=== PATIENT | female | born 1945 | race Hispanic/Latino ===

== ENCOUNTER 2020-07-07 03:40 | Emergency (ER) | payer OTHER ==
--- OUTSIDE RECORDS SUMMARY | 2020-07-07 03:42 | XMS REPORT | Continuity of Care Document ---
:1945 Author Organization [employer] Care Team Providers Name Role Phone [employer] Unavailable Un available Problems Problem Status Onset Classification Date Comments Sourc e Date Reported Localized edema Active Problem 03/31/2018 [facility] Onychomycosis Active Problem 03/31/2018 [facility] Type 2 diabetes Active Problem 03/31/2018 [facility] mellitus without [facility]at[facility] complications Ass[facility] snf current Active Problem 03/31/2018 [facility] Acute gout of Active Problem 03/31/2018 [facility] left foot, Podiatry unspecified cause As soc Medications No Data Provided for This Section Allergies, Adverse Reactions, Alerts No Known Medication Allergies Immunizations No Data Provided for This Section Results No Data Provided for This Section Pathology Reports No Data Provided for This Section Diagnostic Reports No Data Provided for This Section Consultation Notes No Data Provided for This Section Discharge Summaries No Data Provided for This Section History and Physicals No Data Provided for This Section Vital Signs No Data Provided for This Section Encounters No Data Provided for This Section Procedures No Data Provided for This Section Assessment and Plan No Data Provided for This Section Plan of Care No Data Provided for This Section Social History No Data Provided for This Section Family History No Data Provided for This Section Advance Directives No Data Provided for This Section Functional Status No Data Provided for This Section
[2020-07-07 04:47] LABS: Absolute Lymphocytes (CBC) 0.7 K/uL (0.7-4.9); Basophils % 0.5 % (0-1.3); Hematocrit 44.2 % (36.0-45.0); MPV 7.5 fL (7.6-11.3); RBC Red Blood Cell Count 4.96 M/uL (3.86-4.86)
[2020-07-07 04:50] LABS: Protime INR 0.9
[2020-07-07] MEDS ORDERED: ONDANSETRON 4 MG/2 ML VIAL ONE (04:50)
[2020-07-07] MEDS ORDERED: MORPHINE 2 MG/ML SYR ONE ×2 (04:50→05:31)
[2020-07-07 05:09] LABS: ALT/SGPT 26 U/L (12-78); AST/SGOT 20 U/L (15-37); Albumin 3.5 g/dL (3.4-5.0); Alkaline Phosphatase 62 U/L (45-117); BUN Blood Urea Nitrogen 16 mg/dL (7-18); Bicarbonate 24 mmol/L (21-32); Bilirubin Direct 0.1 mg/dL (0-0.2); Bilirubin Total 0.4 mg/dL (0.2-1.0); Creatine Phosphokinase 142 U/L (26-192); Glucose Level 185 mg/dL (74-106); Magnesium 2.1 mg/dL (1.8-2.4); NT PRO-BNP 45 pg/mL (<450); Potassium 3.7 mmol/L (3.5-5.1); Protein, Total 7.1 g/dL (6.4-8.2); Sodium Level 141 mmol/L (136-145); Troponin (Emerg Dept Use Only) < 0.02 ng/mL (0.0-0.045)
[2020-07-07] MEDS ORDERED: METHYLPREDNISOLONE 125 MG INJ ONE (08:40)
[2020-07-07] MEDS ORDERED: MEPERIDINE HCL 25 MG/ML SYR ONE (08:41)
--- NOTE | 2020-07-07 08:52 | EDPHYS ---
Physician Documentation [facility] Name: Rosario Busch Age: 75 yrs Sex: Female : 1945 Arrival Date: 07/07/2020 Time: 03:42 Bed 3 Private MD: ED Physician Jayce Fong HPI: 07/07 05:21 This 75 yrs old Female presents to ER via Ambulatory with complaints of Arm mh7 Pain, Nausea. 05:21 The patient or guardian complains of pain, that is acute. The complaints affect the mh7 Right forearm, wrist and hand. Context: The problem was sustained at home, resulted from unknown cause. Onset: The symptoms/episode began/occurred today. Treatment prior to arrival includes: no previous treatment. Modifying factors: The symptoms are alleviated by nothing. the symptoms are aggravated by movement, touching. Associated signs and symptoms: Pertinent positives: decreased range of motion, nausea, pain, Pertinent negatives: deformity, erythema, fever, numbness, swelling, tingling, vomiting, warmth, weakness. Severity of symptoms: At their worst the symptoms were moderate, earlier today, in the emergency department the symptoms are unchanged. Historical: - Allergies: 03:56 Codeine; ea 03:56 Naproxen; ea 03:56 PENICILLINS; ea 03:56 Vicodin; ea - PMHx: 03:56 Diabetes - IDDM; ea - PSHx: 03:56 ulcer surgery; Cholecystectomy; Hysterectomy; back surgery; ea - Immunization history:: Adult Immunizations up to date. - Social history:: Smoking status: Patient denies any tobacco usage or history of. ROS: 05:21 Constitutional: Negative for fever, chills, and weight loss, Eyes: Negative for injury, mh7 pain, redness, and discharge, ENT: Negative for injury, pain, and discharge, Neck: Negative for injury, pain, and swelling, Cardiovascular: Negative for chest pain, palpitations, and edema, Respiratory: Negative for shortness of breath, cough, wheezing, and pleuritic chest pain, Abdomen/GI: Negative for abdominal pain, nausea, vomiting, diarrhea, and constipation, Back: Negative for injury and pain, : Negative for injury, bleeding, discharge, and swelling, Skin: Negative for injury, rash, and discoloration, Neuro: Negative for headache, weakness, numbness, tingling, and seizure, Psych: Negative for depression, anxiety, suicide ideation, homicidal ideation, and hallucinations, Allergy/Immunology: Negative for hives, rash, and allergies, Endocrine: Negative for neck swelling, polydipsia, polyuria, polyphagia, and marked weight changes, Hematologic/Lymphatic: Negative for swollen nodes, abnormal bleeding, and unusual bruising. Exam: 05:21 Head/Face: Normocephalic, atraumatic. Eyes: Pupils equal round and reactive to light, mh7 extra-ocular motions intact. Lids and lashes normal. Conjunctiva and sclera are non-icteric and not injected. Cornea within normal limits. Periorbital areas with no swelling, redness, or edema. Neck: Trachea midline, no thyromegaly or masses palpated, and no cervical lymphadenopathy. Supple, full range of motion without nuchal rigidity, or vertebral point tenderness. No Meningismus. Chest/axilla: Normal chest wall appearance and motion. Nontender with no deformity. No lesions are appreciated. Cardiovascular: Regular rate and rhythm with a normal S1 and S2. No gallops, murmurs, or rubs. Normal PMI, no JVD. No pulse deficits. Respiratory: Lungs have equal breath sounds bilaterally, clear to auscultation and percussion. No rales, rhonchi or wheezes noted. No increased work of breathing, no retractions or nasal flaring. Abdomen/GI: Soft, non-tender, with normal bowel sounds. No distension or tympany. No guarding or rebound. No evidence of tenderness throughout. Back: No spinal tenderness. No costovertebral tenderness. Full range of motion. Skin: Warm, dry with normal turgor. Normal color with no rashes, no lesions, and no evidence of cellulitis. 05:21 Neuro: Awake and alert, GCS 15, oriented to person, place, time, and situation. Cranial nerves II-XII grossly intact. Motor strength 5/5 in all extremities. Sensory grossly intact. Cerebellar exam normal. Normal gait. Psych: Awake, alert, with orientation to person, place and time. Behavior, mood, and affect are within normal limits. 05:21 Constitutional: The patient appears in no acute distress, alert, awake, uncomfortable. 05:21 Musculoskeletal/extremity: Extremities: noted in the right forearm, wrist, and hand: pain, tenderness, ROM: limited active range of motion due to pain, in the right forearm, wrist, and hand, limited passive range of motion due to pain, in the right forearm, wrist, and hand, Circulation is intact in all extremities. Pulses: are normal with no appreciated deficits, Perfusion: the patient is normally perfused throughout, Perfusion: the extremity is normally perfused throughout, Sensation intact. Compartment Syndrome exam of affected extremity: is normal. no numbness, no tingling, no sensation deficit, no palor, no weak pulses, Joints: the right wrist displays pain at rest, painful range of motion, tenderness, Weight bearing: able to fully bear weight, without difficulty, Tendon exam: specific tendon testing normal through active and passive range of motion Vital Signs: 03:48 BP 161 / 69; Pulse 70; Resp 18; Pulse Ox 96% on R/A; ll2 03:53 BP 161 / 69; Pulse 79; Resp 18; Temp 97.6; Pulse Ox 98% ; Weight 56.7 kg; Height 4 ft. ea 11 in. (149.86 cm); Pain 9/10; 05:00 BP 130 / 65; Pulse 72; Resp 16; Pulse Ox 95% on R/A; ll2 06:05 BP 127 / 62; Pulse 74; Resp 17; Pulse Ox 94% on R/A; ll2 08:19 BP 127 / 72; Pulse 69; Resp 17; Pulse Ox 98% ; Pain 10/10; jl7 09:11 BP 126 / 60; Pulse 74; Resp 16; Pulse Ox 96% on R/A; tw2 03:53 Body Mass Index 25.25 (56.70 kg, 149.86 cm) ea MDM: 07:23 Transition of care: After a detail discussion of the patient's case, care is mh7 transferred to Jayce Fong MD. 07:43 ED course: Signed out to me by Dr. Floyd, pending u/s of arm, plan per Dr. Floyd is rn to dc home if u/s neg for dvt. . 07:43 Patient medically screened. rn 08:47 Differential diagnosis: tendonitis, pseudogout, gout, arthritis. Data reviewed: vital rn signs, nurses notes, lab test result(s), radiologic studies, doppler, plain films, and as a result, I will discharge patient. Counseling: I had a detailed discussion with the patient and/or guardian regarding: the historical points, exam findings, and any diagnostic results supporting the discharge/admit diagnosis, lab results, radiology results, the need for outpatient follow up, to return to the emergency department if symptoms worsen or persist or if there are any questions or concerns that arise at home. Response to treatment: the patient's symptoms have mildly improved after treatment. ED course: Ultrasound for dvt negative, WBC normal, afebrile, exam does not reveal signs of cellulitis or deep space infection, has pain primarily in joints of elbow and wrist without streaking. Just admitted in [place] this past week for right knee pain and swelling with right leg pain similar to pain that she is having now in arm, after workup and MRI/bloodwork, told has "a type of GOUT but not GOUT", which I am assuming is pseudogout. This would be consistent with pain from pseudogout, has hydrocodone at home, told her to add other OTC anti-inflammatory and I would prescribe steroids. Return precautions given and understood. . 07/07 04:07 Order name: Basic Metabolic Panel [facility] 07/07 04:07 Order name: CBC with Diff [facility] 07/07 04:07 Order name: LFT's; Complete Time: 05:49 [facility] 07/07 04:07 Order name: Magnesium; Complete Time: 05:49 [facility] 07/07 04:07 Order name: NT PRO-BNP; Complete Time: 05:49 [facility] 07/07 04:07 Order name: PT-INR; Complete Time: 05:49 [facility] 07/07 04:07 Order name: Troponin (emerg Dept Use Only); Complete Time: 05:49 [facility] 07/07 04:07 Order name: CPK; Complete Time: 05:49 [facility] 07/07 04:07 Order name: Forearm Right XRAY [facility] 07/07 04:07 Order name: Wrist Right 3 View XRAY [facility] 07/07 04:07 Order name: Hand Right 3 View XRAY [facility] 07/07 04:07 Order name: Basic Metabolic Panel; Complete Time: 05:49 [facility] 07/07 04:07 Order name: CBC with Automated Diff; Complete Time: 05:49 [facility] 07/07 05:49 Order name: D-Dimer; Complete Time: 06:13 [facility] 07/07 04:07 Order name: IV Saline Lock; Complete Time: 04:55 [facility] 07/07 06:14 Order name: US Extremity Venous Unilateral Ltd [facility] Administered Medications: 04:40 Drug: Zofran (Ondansetron) 4 mg Route: IVP; Site: left forearm; ll2 05:32 Follow up: Response: No adverse reaction; Nausea is decreased ll2 04:41 Drug: morphine 2 mg Route: IVP; Site: left forearm; ll2 05:31 Drug: morphine 2 mg Route: IVP; Site: left antecubital; ll2 07:00 Follow up: Response: No adverse reaction [facility] 08:33 Drug: SOLU-Medrol 125 mg Route: IVP; Site: left forearm; 7 08:35 Drug: Demerol 25 mg Route: IVP; Site: left forearm; 7 Disposition: 07/07/20 08:51 Discharged to Home. Impression: Pain in right wrist, Pseudogout. - Condition is Stable. - Discharge Instructions: Gout, Musculoskeletal Pain, Wrist Pain. - Prescriptions for Medrol (Josh) 4 mg Oral Tablets, Dose Pack - take 1 tablet by ORAL route as directed - follow package instructions; 1 packet. - Medication Reconciliation Form, Thank You Letter, Antibiotic Education, Prescription Opioid Use form. - Follow up: Private Physician; When: As needed; Reason: Recheck today's complaints, Re-evaluation by your physician. - Problem is new. - Symptoms have improved. Signatures: Dispatcher [employer] EDMS Jayce Fong MD MD rn Wise, Tara, RN RN tw2 Lili Welsh RN RN jl7 Jacki Fritz RN RN ea Linscombe, Lacie RN RN ll2 Og Floyd MD MD 7 Corrections: (The following items were deleted from the chart) 09:28 08:51 07/07/2020 08:51 Discharged to Home. Impression: Pain in right wrist; Pseudogout. tw2 Condition is Stable. Forms are Medication Reconciliation Form, Thank You Letter, Antibiotic Education, Prescription Opioid Use. Follow up: Private Physician; When: As needed; Reason: Recheck today's complaints, Re-evaluation by your physician. Problem is new. Symptoms have improved. rn
--- NOTE | 2020-07-07 08:52 | ER ---
Nurse's Notes [facility] Name: Rosario Busch Age: 75 yrs Sex: Female : 1945 Arrival Date: 07/07/2020 Time: 03:42 Bed 3 Private MD: Diagnosis: Pain in right wrist;Pseudogout Presentation: 07/07 03:53 Chief complaint: Patient states: Reports she woke up about thirty minutes ago with ea severe right arm pain. Coronavirus screen: At this time, the client does not indicate any symptoms associated with coronavirus-19. Ebola Screen: No symptoms or risks identified at this time. Initial Sepsis Screen: Does the patient meet any 2 criteria? No. Patient's initial sepsis screen is negative. Does the patient have a suspected source of infection? No. Patient's initial sepsis screen is negative. Risk Assessment: Do you want to hurt yourself or someone else? Patient reports no desire to harm self or others. Onset of symptoms was July 07, 2020. 03:53 Method Of Arrival: Ambulatory ea 03:53 Acuity: VIVIANE 3 ea Triage Assessment: 03:57 General: Appears uncomfortable, Behavior is appropriate for age. Pain: Complains of ea pain in right arm. GI: Reports nausea. Historical: - Allergies: 03:56 Codeine; ea 03:56 Naproxen; ea 03:56 PENICILLINS; ea 03:56 Vicodin; ea - PMHx: 03:56 Diabetes - IDDM; ea - PSHx: 03:56 ulcer surgery; Cholecystectomy; Hysterectomy; back surgery; ea - Immunization history:: Adult Immunizations up to date. - Social history:: Smoking status: Patient denies any tobacco usage or history of. Screenin:55 Abuse screen: Denies threats or abuse. Nutritional screening: No deficits noted. ea Tuberculosis screening: No symptoms or risk factors identified. Fall Risk None identified. Assessment: 03:55 General: Appears in no apparent distress. uncomfortable, Behavior is calm, cooperative, ll2 appropriate for age. Pain: Complains of pain in right arm. Neuro: Level of Consciousness is awake, alert, obeys commands, Oriented to person, place, time, situation. Cardiovascular: Patient's skin is warm and dry. Respiratory: Airway is patent Respiratory effort is even, unlabored, Respiratory pattern is regular, symmetrical. GI: :. EENT: No signs and/or symptoms were reported regarding the EENT system. Derm: Skin is intact, is healthy with good turgor, Skin is dry, Skin is pink, warm \T\ dry. Musculoskeletal: Circulation, motion, and sensation intact. Range of motion: limited in right arm. 04:55 Reassessment: Patient and/or family updated on plan of care and expected duration. Pain ll2 level reassessed. Patient is alert, oriented x 3, equal unlabored respirations, skin warm/dry/pink. 05:31 Reassessment: ERD NOTIFIED OF INCREASING PAIN. ll2 06:37 Reassessment: Patient and/or family updated on plan of care and expected duration. Pain ll2 level reassessed. Patient is alert, oriented x 3, equal unlabored respirations, skin warm/dry/pink. 08:10 Reassessment: Assisted pt to bathroom via wheelchair, pt reports severe right arm and jl7 wrist pain, requesting pain medication, ERD notified and to pt bedside at this time. Vital Signs: 03:48 BP 161 / 69; Pulse 70; Resp 18; Pulse Ox 96% on R/A; ll2 03:53 BP 161 / 69; Pulse 79; Resp 18; Temp 97.6; Pulse Ox 98% ; Weight 56.7 kg; Height 4 ft. ea 11 in. (149.86 cm); Pain 9/10; 05:00 BP 130 / 65; Pulse 72; Resp 16; Pulse Ox 95% on R/A; ll2 06:05 BP 127 / 62; Pulse 74; Resp 17; Pulse Ox 94% on R/A; ll2 08:19 BP 127 / 72; Pulse 69; Resp 17; Pulse Ox 98% ; Pain 10/10; jl7 09:11 BP 126 / 60; Pulse 74; Resp 16; Pulse Ox 96% on R/A; tw2 03:53 Body Mass Index 25.25 (56.70 kg, 149.86 cm) ea ED Course: 03:42 Patient arrived in ED. am2 03:43 Og Floyd MD is Attending Physician. [facility] 03:55 Triage completed. ea 03:56 Arm band placed on right wrist. Patient placed in an exam room, on a stretcher, on ea pulse oximetry. 03:56 Patient has correct armband on for positive identification. Bed in low position. Call ea light in reach. Side rails up X 1. 04:15 Inserted saline lock: 20 gauge in left forearm, using aseptic technique. Blood ea collected. 04:28 Leny Taveras RN is Primary Nurse. ll2 05:10 X-ray completed. Portable x-ray completed in exam room. Patient tolerated procedure mh1 well. 05:11 Forearm Right XRAY In Process Unspecified. EDMS 05:11 Wrist Right 3 View XRAY In Process Unspecified. EDMS 05:11 Hand Right 3 View XRAY In Process Unspecified. EDMS 06:37 No provider procedures requiring assistance completed. ll2 07:09 Report given to ANDREW Pearson. ll2 07:18 Primary Nurse role handed off by Leny Taveras RN tw2 07:18 Angela Eli RN is Primary Nurse. tw2 07:43 Attending Physician role handed off by Og Floyd MD rn 07:43 Jayce Fong MD is Attending Physician. rn 08:07 US Extremity Venous Unilateral Ltd In Process Unspecified. EDMS Administered Medications: 04:40 Drug: Zofran (Ondansetron) 4 mg Route: IVP; Site: left forearm; ll2 05:32 Follow up: Response: No adverse reaction; Nausea is decreased ll2 04:41 Drug: morphine 2 mg Route: IVP; Site: left forearm; ll2 05:31 Drug: morphine 2 mg Route: IVP; Site: left antecubital; ll2 07:00 Follow up: Response: No adverse reaction jl7 08:33 Drug: SOLU-Medrol 125 mg Route: IVP; Site: left forearm; jl7 08:35 Drug: Demerol 25 mg Route: IVP; Site: left forearm; jl7 Outcome: 08:51 Discharge ordered by . rn 09:28 Patient left the ED. tw2 Signatures: Dispatcher [employer] EDMS Brittny Grace 1 Jayce Fong MD MD rn Wise, Tara, RN RN tw2 Lili Welsh RN RN jl7 Doreen Andrews 2 Jacki Fritz RN RN ea Linscombe, Lacie, RN RN 2 Floyd, Og, MD MD mh7
--- NOTE | 2020-07-07 09:17 | RAD REPORT ---
EXAM DESCRIPTION: US - Extremity Venous Uni Ltd - 07/07/2020 8:10 am CLINICAL HISTORY: Right arm pain and swelling COMPARISON: None. TECHNIQUE: Real-time sonographic evaluation of the right upper extremity deep venous systems was per formed. FINDINGS: Normal compressibility, flow augmentation, phasic flow and spontaneous flow are identified in the right upper extremity deep venous system. No intraluminal filling defects seen. Internal jugu lar and subclavian veins are normal as well. IMPRESSION: No DVT in the right upper extremity.
--- NOTE | 2020-07-07 09:21 | RAD REPORT ---
EXAM DESCRIPTION: RAD - Forearm Right - 07/07/2020 5:10 am CLINICAL HISTORY: PAIN, nontraumatic arm pain COMPARISON: No comparisonsNone. FINDINGS: No fracture is identified. There is no dislocation or periosteal reaction noted. Bones are osteopenic. Degenerative changes are present seen as calcifications in the triangular fibro cartilage at the wrist. There degenerative calcifications along the lateral margin of the elbow joint . IMPRESSION: Osteopenic right forearm bony changes along with elbow and wrist degenerative change as detailed. No acute findings seen.
--- NOTE | 2020-07-07 09:29 | RAD REPORT ---
EXAM DESCRIPTION: RAD - Wrist Right 3 View - 07/07/2020 5:10 am CLINICAL HISTORY: PAINcommon nontraumatic COMPARISON: No comparisons FINDINGS: No fracture is identified. There is no dislocation or periosteal reaction noted. Degenerat juan pablo calcifications are present at the triangular fibrocartilage of the wrist. Radiocarpal joint space is narrowed slightly. Periarticular calcifications are present at the second and fifth MCP joints. T here does appear to be some erosive component along the medial margin of the fifth metacarpal head. T he IP joints are narrowed. No periarticular calcifications confirmed at the IP joints and no erosive changes seen. No foreign body seen. Bones are osteopenic. IMPRESSION: Osteopenic and degenerative bony changes are present with no fracture or acute finding s een. Periarticular calcifications at the second and fifth MCP joints are suspicious for gout. Calcium pyro phosphate deposition disease is possible. An acute calcific area arthritis is possible but usually in younger patients.
--- NOTE | 2020-07-07 09:37 | RAD REPORT ---
EXAM DESCRIPTION: RAD - Hand Right 3 View - 07/07/2020 5:10 am CLINICAL HISTORY: PAIN, nontraumatic COMPARISON: Hand Right 3 View dated 02/01/2010 FINDINGS: No acute fracture identified. There is no dislocation or periosteal reaction noted. Peria rticular calcifications are present at the second and fifth MCP joints. There are lucent changes in t he fifth metacarpal head most notable along the medial margin of the head. Calcifications are progres sive from 2009. IP joint space narrowing seen without spurring or erosive change. No IP joint periarticular calcifica tions confirmed. Patient has calcifications at the triangular fibrocartilage at the wrist along with additional calcifications along the margins of the radiocarpal joint space. These calcifications and degenerative changes are progressive from 2009. IMPRESSION: No acute fracture seen. No pathologic or destructive bone change. Osteopenic and degenerative changes are present along with periarticular calcifications as detailed. Gout is the favored diagnosis and can be correlated with any history. Calcium pyrophosphate depositio n disease would be possible as well. Acute calcific periarthritis also possible.
[2020-07-07 11:32] VITALS: TEMP 97.6
[2020-07-07 11:46] VITALS: BP 126/60; O2SAT 96
== END 2020-07-07 09:28 | disposition home or self-care (01) ==
LOC: ER 03:40
DX: M11.231 Other chondrocalcinosis, right wrist (principal); E11.9 Type 2 diabetes mellitus without complications; Z79.4 Long term (current) use of insulin
CPT/HCPCS: 85025; 80048; 36415; 83735; 82550; 85610; 85379; 80076; 84484; 83880; 73130; 73090; 73110; 93971; 99284; J2270 ×2; J2175; J2930; J2405

== ENCOUNTER 2021-06-11 15:32 | Emergency (ER) | payer OTHER ==
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
--- NOTE | 2021-06-11 16:26 | RAD REPORT ---
EXAM DESCRIPTION: RAD - Femur Right - 06/11/2021 4:16 pm CLINICAL HISTORY: PAIN COMPARISON: No comparisons FINDINGS: No acute fracture. No malalignment. Mild right acetabular degenerative changes. IMPRESSION: No acute osseous abnormality involving the right knee.
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
[2021-06-11 18:24] VITALS: BP 125/55; TEMP 98; O2SAT 97
== END 2021-06-11 16:50 | disposition home or self-care (01) ==
LOC: ER 15:32
DX: M54.50 Low back pain, unspecified (principal); V49.50XA Passenger injured in collision with unspecified motor vehicles in traffic accident, initial encounter; E11.9 Type 2 diabetes mellitus without complications; Z88.0 Allergy status to penicillin; Z88.5 Allergy status to narcotic agent; Z88.6 Allergy status to analgesic agent
CPT/HCPCS: 70450; 71250; 72125; 99284

== ENCOUNTER 2021-08-22 04:27 | Emergency (ER) | payer OTHER ==
--- OUTSIDE RECORDS SUMMARY | 2021-08-22 04:30 | XMS REPORT | Continuity of Care Document ---
:1945 Author Organization [facility] t Address [address] [place] [address] Care Team Providers Name Role Phone Unavailable Unavailable Unavailable Problems Condition Condition Condition Status Onset Resolution Last Treating Co mments Source Name Details Category Date Date Treatment Clinician Date Localized Problem Active 2018-03-31 Me moria edema 02:45:[address] [place] Localized edema Active Problem 03/31/2018 [facility] Onychomyco Problem Active 2018-03-31 M emoria sis 02:45:[address] [place] Onychomyco sis Active Problem 03/31/2018 [facility] Type 2 Problem Active 2018-03-31 Memor ia diabetes 02:45:13 l mellitus Type 2 Cj n without diabetes complicati mellitus ons without complicati ons Active Problem 03/31/2018 [facility] 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 Medications This patient has no known medications. Procedures This patient has no known procedures. Encounters Start End Encounter Admission Attending Care Care Encounter Source Date/Time Date/Time Type Type Clinicians Facility Department ID 2021-05-01 Outpatient [id number] Memoria 09:22:26 [id number] [place] [id number] 2021-04-11 [facility] [id number] Memoria 15:20:22 [id number] [place] [id number] Results This patient has no known results.
[2021-08-22] MEDS ORDERED: FENTANYL CITR 100 MCG/2 ML ONE ×2 (05:51→06:38)
[2021-08-22] MEDS ORDERED: ONDANSETRON 4 MG/2 ML VIAL ONE (05:53)
[2021-08-22] MEDS ORDERED: COLCHICINE 0.6 MG TAB ONE ×4 (05:53→07:15)
[2021-08-22] MEDS ORDERED: dexAMETHasone 10 MG/ML VIAL ONE (05:53)
[2021-08-22] MEDS ORDERED: NA CHLORIDE 0.9% 500 ML ONE (05:53)
[2021-08-22 05:56] LABS: Absolute Lymphocytes (CBC) 0.4 K/uL (0.7-4.9); Hematocrit 37.9 % (36.0-45.0); Lymphocytes % 6.3 % (15.3-44.8); MPV 6.5 fL (7.6-11.3); RBC Red Blood Cell Count 4.31 M/uL (3.86-4.86)
--- NOTE | 2021-08-22 06:15 | EDPHYS ---
Physician Documentation [facility] Name: Rosario Busch Age: 76 yrs Sex: Female : 1945 Arrival Date: 08/22/2021 Time: 04:30 Bed 11 Private MD: ED Physician Addison Gamboa HPI: 08/22 05:17 This 76 yrs old Female presents to ER via Wheelchair with complaints of PAIN carrillo DOWN THE RIGHT SIDE, Decreased Appetite, Chest Pain. 05:17 This 76 yrs old Female presents to ER via Wheelchair with complaints of PAIN carrillo DOWN THE RIGHT SIDE, Decreased Appetite, Chest Pain. Historical: - Allergies: 04:40 Codeine; sf1 04:40 Naproxen; sf1 04:40 PENICILLINS; sf1 04:40 Vicodin; sf1 - Home Meds: 04:40 Align 4 mg Oral cap [Active]; cyanocobalamin (vitamin B-12) 1,000 mcg Oral tab daily sf1 [Active]; Jardiance 25 mg Oral tab 1 tab once daily [Active]; Vitamin D3 Oral [Active]; - PMHx: 04:40 Diabetes - IDDM; sf1 - PSHx: 04:40 breast CA-lumpectomy R; sf1 - Immunization history:: Adult Immunizations unknown, Flu vaccine is up to date. - Social history:: Smoking status: Patient denies any tobacco usage or history of. Patient/guardian denies using alcohol, street drugs. ROS: 05:22 Constitutional: Negative for fever, chills, and weight loss, Eyes: Negative for injury, carrillo pain, redness, and discharge, ENT: Negative for injury, pain, and discharge, Neck: Negative for injury, pain, and swelling, Cardiovascular: Negative for chest pain, palpitations, and edema, Respiratory: Negative for shortness of breath, cough, wheezing, and pleuritic chest pain, Abdomen/GI: Negative for abdominal pain, nausea, vomiting, diarrhea, and constipation, Back: Negative for injury and pain, : Negative for injury, bleeding, discharge, and swelling, Skin: Negative for injury, rash, and discoloration, Neuro: Negative for headache, weakness, numbness, tingling, and seizure, Psych: Negative for depression, anxiety, suicide ideation, homicidal ideation, and hallucinations, Allergy/Immunology: Negative for hives, rash, and allergies, Endocrine: Negative for neck swelling, polydipsia, polyuria, polyphagia, and marked weight changes, Hematologic/Lymphatic: Negative for swollen nodes, abnormal bleeding, and unusual bruising. 05:22 MS/extremity: Positive for decreased range of motion, swelling, tenderness, of the anterior aspect of right shoulder, posterior aspect of right shoulder and right wrist. Exam: 05:22 Constitutional: This is a well developed, well nourished patient who is awake, alert, carrillo and in no acute distress. Head/Face: Normocephalic, atraumatic. Eyes: Pupils equal round and reactive to light, extra-ocular motions intact. Lids and lashes normal. Conjunctiva and sclera are non-icteric and not injected. Cornea within normal limits. Periorbital areas with no swelling, redness, or edema. ENT: Nares patent. No nasal discharge, no septal abnormalities noted. Tympanic membranes are normal and external auditory canals are clear. Oropharynx with no redness, swelling, or masses, exudates, or evidence of obstruction, uvula midline. Mucous membranes moist. Neck: Trachea midline, no thyromegaly or masses palpated, and no cervical lymphadenopathy. Supple, full range of motion without nuchal rigidity, or vertebral point tenderness. No Meningismus. Chest/axilla: Normal chest wall appearance and motion. Nontender with no deformity. No lesions are appreciated. Cardiovascular: Regular rate and rhythm with a normal S1 and S2. No gallops, murmurs, or rubs. Normal PMI, no JVD. No pulse deficits. Respiratory: Lungs have equal breath sounds bilaterally, clear to auscultation and percussion. No rales, rhonchi or wheezes noted. No increased work of breathing, no retractions or nasal flaring. Abdomen/GI: Soft, non-tender, with normal bowel sounds. No distension or tympany. No guarding or rebound. No evidence of tenderness throughout. Back: No spinal tenderness. No costovertebral tenderness. Full range of motion. Female : Normal external genitalia. Skin: Warm, dry with normal turgor. Normal color with no rashes, no lesions, and no evidence of cellulitis. Neuro: Awake and alert, GCS 15, oriented to person, place, time, and situation. Cranial nerves II-XII grossly intact. Motor strength 5/5 in all extremities. Sensory grossly intact. Cerebellar exam normal. Normal gait. Psych: Awake, alert, with orientation to person, place and time. Behavior, mood, and affect are within normal limits. 05:22 Musculoskeletal/extremity: ROM: limited active range of motion, limited passive range of motion, in the anterior aspect of right shoulder, right wrist and posterior aspect of right shoulder, Circulation is intact in all extremities. Sensation intact. Compartment Syndrome exam of affected extremity: is normal. DVT Exam: negative Homans' sign noted on exam, no appreciated bluish discoloration, no erythema, no increased warmth, pain, swelling, tenderness. Vital Signs: 04:37 BP 133 / 57; Pulse 79; Resp 18; Temp 97.0; Pulse Ox 98% ; Weight 54.43 kg; Height 4 ft. sf1 11 in. (149.86 cm); Pain 10/10; 04:37 Body Mass Index 24.24 (54.43 kg, 149.86 cm) sf1 MDM: 04:56 Patient medically screened. carrillo 06:11 Differential diagnosis: anxiety, OA, GOUT. HEART Score: History: Slightly Suspicious carrillo (0), Age: > or = 65 years (2), Risk Factors: 1 or 2 risk factors (1), [DM]. The patient was not given aspirin in the Emergency Department. Not indicated due to patient's past medical history. The patient's deep vein thrombosis risk score was calculated as follows: Total Score: 0. This patient was found to be at low risk for a deep vein thrombosis by using the Well's assessment criteria. The patient's pulmonary embolism risk score was calculated as follows: Total Score: 0-2 points. This patient was found to be at low risk for a pulmonary embolism by using the Well's assessment criteria. NORMA Risk Score: TOTAL SCORE = 0. Data reviewed: vital signs, nurses notes, lab test result(s), radiologic studies, plain films. Data interpreted: desk monitor: rate is 79 beats/min, rhythm is regular, Pulse oximetry: on room air is 98 %. Test interpretation: by ED physician or midlevel provider: plain radiologic studies. Counseling: I had a detailed discussion with the patient and/or guardian regarding: the historical points, exam findings, and any diagnostic results supporting the discharge/admit diagnosis, lab results, radiology results, the need for outpatient follow up, for definitive care, an vein pumper, a orthopedic surgeon. 08/22 05:17 Order name: CBC with Diff [facility] 08/22 05:17 Order name: Comprehensive Metabolic Panel [facility] 08/22 05:17 Order name: Uric Acid [facility] 08/22 05:18 Order name: CBC with Automated Diff; Complete Time: 06:09 [facility] 08/22 05:18 Order name: Comprehensive Metabolic Panel [facility] 08/22 05:18 Order name: Uric Acid [facility] 08/22 05:17 Order name: Wrist Right 3 View XRAY [facility] 08/22 05:17 Order name: Shoulder Right (2 View) XRAY [facility] 08/22 05:28 Order name: Sling; Complete Time: 06:46 [facility] 08/22 06:11 Order name: Ice pack; Complete Time: 06:46 [facility] 08/22 06:11 Order name: Splint - Wrist: COCK UP; Complete Time: 06:46 [facility] Administered Medications: 06:21 Drug: NS 0.9% 500 ml Route: IV; Rate: bolus; Site: left forearm; lg3 06:46 Follow up: Response: No adverse reaction; IV Intake: 500ml lg3 06:21 Drug: Colcrys (colchicine) 1.2 mg Route: PO; lg3 06:23 Follow up: Response: No adverse reaction lg3 06:21 Drug: Decadron - Dexamethasone 10 mg Route: IVP; Site: left forearm; lg3 06:22 Follow up: Response: No adverse reaction lg3 06:21 Drug: fentaNYL (PF) 25 mcg Route: IVP; Site: left forearm; lg3 06:22 Follow up: Response: No adverse reaction lg3 06:21 Drug: Zofran (Ondansetron) 4 mg Route: IVP; Site: left forearm; lg3 06:22 Follow up: Response: No adverse reaction lg3 06:38 Drug: Ketorolac 30 mg Route: IVP; Site: left forearm; lg3 06:39 Follow up: Response: No adverse reaction lg3 06:39 Drug: fentaNYL Patch (25 mcg/hr) 1 patches Route: Transdermal; Site: affected area; lg3 06:40 Follow up: Response: No adverse reaction lg3 06:39 Drug: fentaNYL (PF) 25 mcg Route: IVP; Site: left forearm; lg3 06:39 Follow up: Response: No adverse reaction lg3 06:46 Follow up: Response: No adverse reaction lg3 07:17 Drug: Colcrys (colchicine) 0.6 mg Route: PO; lg3 07:17 Follow up: Response: No adverse reaction lg3 Disposition Summary: 08/22/21 06:15 Discharge Ordered Location: Home carrillo Problem: new carrillo Symptoms: have improved carrillo Condition: Stable carrillo Diagnosis - Gout, unspecified carrillo - Pain in right wrist carrillo - Pain in right shoulder carrillo Followup: carrillo - With: Private Physician - When: 2 - 3 days - Reason: Recheck today's complaints, Continuance of care, Re-evaluation by your physician Followup: carrillo - With: - When: 2 - 3 days - Reason: Recheck today's complaints, Re-evaluation by your physician Discharge Instructions: - Discharge Summary Sheet carrillo - Joint Pain carrillo - Arthritis carrillo - Gout carrillo - Musculoskeletal Pain carrillo - Shoulder Pain carrillo - Wrist Pain, Adult carrillo - Shoulder Pain, [id number] carrillo - Wrist Pain, Adult, [id number] carrillo - Low-Purine Eating Plan carrillo - Gout, [id number] carrillo - Arthritis, [id number] carrillo - How to Use Cold Therapy carrillo - Joint Pain, [id number] carrillo Forms: - Medication Reconciliation Form carrillo - Thank You Letter [facility] - Antibiotic Education [facility] - Prescription Opioid Use [facility] Prescriptions: - colchicine 0.6 mg Oral tablet - take 2 tablet by ORAL route 2 times per day; 8 tablet; Refills: 0, Product carrillo Selection Permitted - Motrin IB 200 mg Oral Tablet - take 2 tablet by ORAL route every 6 hours As needed as needed with food; 30 carrillo tablet; Refills: 0, Product Selection Permitted - Tylenol-Codeine #3 300 mg-30 mg Oral - take 1 tablet by ORAL route every 4-6 hours; 15 tablet; Refills: 0, Product carrillo Selection Permitted - dexamethasone 2 mg Oral tablet - take 1 tablet by ORAL route 2 times per day; 8 tablet; Refills: 0, Product carrillo Selection Permitted Signatures: Dispatcher [employer] Addison Allan MD MD cha Gibson, Lacie, RN RN lg3 Ana Luisa Corley RN RN sf1
--- NOTE | 2021-08-22 06:15 | ER ---
Nurse's Notes [facility] Name: Rosario Busch Age: 76 yrs Sex: Female : 1945 Arrival Date: 08/22/2021 Time: 04:30 Bed 11 Private MD: Diagnosis: Gout, unspecified;Pain in right wrist;Pain in right shoulder Presentation: 08/22 04:37 Chief complaint: Patient states: a week my right neck, shoulder, and wrist has been sf1 hurting. Patient c/o chest wall pain on the right side, denies injury to the area. Had a recent back surgery 2 months ago and has back pain tonight. Nausea also reported. Coronavirus screen: Vaccine status: Patient reports being unvaccinated. Client denies travel out of the [place] in the last 14 days. Ebola Screen: Patient negative for fever greater than or equal to 101.5 degrees Fahrenheit, and additional compatible Ebola Virus Disease symptoms Patient denies exposure to infectious person. Patient denies travel to an Ebola-affected area in the 21 days before illness onset. Initial Sepsis Screen: Does the patient meet any 2 criteria? No. Patient's initial sepsis screen is negative. Does the patient have a suspected source of infection? No. Patient's initial sepsis screen is negative. Risk Assessment: Do you want to hurt yourself or someone else? Patient reports no desire to harm self or others. Onset of symptoms was August 15, 2021 at 15:00. 04:37 Method Of Arrival: Wheelchair sf1 04:37 Acuity: VIVIANE 3 sf1 Triage Assessment: 04:40 General: Appears uncomfortable, slender, Behavior is calm, cooperative, appropriate for 1 age. Pain: Complains of pain in right clavicle, anterior aspect of right upper chest, left lateral posterior chest and right lateral posterior chest Pain currently is 10 out of 10 on a pain scale. Cardiovascular: Reports chest pain. Historical: - Allergies: 04:40 Codeine; sf1 04:40 Naproxen; sf1 04:40 PENICILLINS; sf1 04:40 Vicodin; sf1 - Home Meds: 04:40 Align 4 mg Oral cap [Active]; cyanocobalamin (vitamin B-12) 1,000 mcg Oral tab daily sf1 [Active]; Jardiance 25 mg Oral tab 1 tab once daily [Active]; Vitamin D3 Oral [Active]; - PMHx: 04:40 Diabetes - IDDM; sf1 - PSHx: 04:40 breast CA-lumpectomy R; sf1 - Immunization history:: Adult Immunizations unknown, Flu vaccine is up to date. - Social history:: Smoking status: Patient denies any tobacco usage or history of. Patient/guardian denies using alcohol, street drugs. Screenin:41 Abuse screen: Denies threats or abuse. Nutritional screening: No deficits noted. sf1 Tuberculosis screening: No symptoms or risk factors identified. Fall Risk None identified. Vital Signs: 04:37 BP 133 / 57; Pulse 79; Resp 18; Temp 97.0; Pulse Ox 98% ; Weight 54.43 kg; Height 4 ft. sf1 11 in. (149.86 cm); Pain 10/10; 04:37 Body Mass Index 24.24 (54.43 kg, 149.86 cm) sf1 ED Course: 04:30 Patient arrived in ED. ja2 04:40 Triage completed. sf1 04:42 Arm band placed on left wrist. sf1 04:56 Addison Gamboa MD is Attending Physician. carrillo 05:00 Ana Luisa Corley, RN is Primary Nurse. sf1 05:59 Wrist Right 3 View XRAY In Process Unspecified. EDMS 05:59 Shoulder Right (2 View) XRAY In Process Unspecified. EDMS 06:15 Charlie Kaplan MD is Referral Physician. carrillo 06:49 Orthoglass splint: cock up splint applied to right wrist Sling applied to right arm. ds4 07:43 No provider procedures requiring assistance completed. IV discontinued, intact, vg1 bleeding controlled, No redness/swelling at site. Pressure dressing applied. Administered Medications: 06:21 Drug: NS 0.9% 500 ml Route: IV; Rate: bolus; Site: left forearm; lg3 06:46 Follow up: Response: No adverse reaction; IV Intake: 500ml lg3 06:21 Drug: Colcrys (colchicine) 1.2 mg Route: PO; lg3 06:23 Follow up: Response: No adverse reaction lg3 06:21 Drug: Decadron - Dexamethasone 10 mg Route: IVP; Site: left forearm; lg3 06:22 Follow up: Response: No adverse reaction lg3 06:21 Drug: fentaNYL (PF) 25 mcg Route: IVP; Site: left forearm; lg3 06:22 Follow up: Response: No adverse reaction lg3 06:21 Drug: Zofran (Ondansetron) 4 mg Route: IVP; Site: left forearm; lg3 06:22 Follow up: Response: No adverse reaction lg3 06:38 Drug: Ketorolac 30 mg Route: IVP; Site: left forearm; lg3 06:39 Follow up: Response: No adverse reaction lg3 06:39 Drug: fentaNYL Patch (25 mcg/hr) 1 patches Route: Transdermal; Site: affected area; lg3 06:40 Follow up: Response: No adverse reaction lg3 06:39 Drug: fentaNYL (PF) 25 mcg Route: IVP; Site: left forearm; lg3 06:39 Follow up: Response: No adverse reaction lg3 06:46 Follow up: Response: No adverse reaction lg3 07:17 Drug: Colcrys (colchicine) 0.6 mg Route: PO; lg3 07:17 Follow up: Response: No adverse reaction lg3 Intake: 06:46 IV: 500ml; Total: 500ml. lg3 Outcome: 06:15 Discharge ordered by MD. vizcaino 07:43 Discharged to home via wheelchair, with family. vg1 07:43 Condition: good 07:43 Discharge instructions given to patient, family, Instructed on discharge instructions, follow up and referral plans. medication usage, Demonstrated understanding of instructions, follow-up care, medications, Prescriptions given X 4. 07:44 Patient left the ED. vg1 Signatures: Dispatcher [employer] EDMI Addison Gamboa MD MD cha Swanson, Donovan ds4 Leny Griffiths, RN RN lg3 Meghana Hanson RN RN vg1 Jaquelin Sylvester Samantha RN RN sf1
[2021-08-22] MEDS ORDERED: FENTANYL 25 MCG/PATCH TD ONE (06:37)
[2021-08-22] MEDS ORDERED: KETOROLAC 30 MG/ML INJ ONE (06:38)
[2021-08-22 07:29] LABS: ALT/SGPT 15 U/L (12-78); Albumin 2.8 g/dL (3.4-5.0); Alkaline Phosphatase 75 U/L (45-117); BUN Blood Urea Nitrogen 9 mg/dL (7-18); Bicarbonate 25 mmol/L (21-32); Bilirubin Total 0.9 mg/dL (0.2-1.0); Glucose Level 77 mg/dL (74-106); Protein, Total 6.8 g/dL (6.4-8.2); Sodium Level 136 mmol/L (136-145)
--- NOTE | 2021-08-22 07:37 | RAD REPORT ---
EXAM DESCRIPTION: RAD - Shoulder Right 2 View - 08/22/2021 5:59 am CLINICAL HISTORY: PAIN COMPARISON: Wrist Right 3 View dated 08/22/2021 FINDINGS/IMPRESSION: Single view of the right shoulder. No fractures identified. Alignment is normal on this single view. Fusion hardware in the cervical spine.
--- NOTE | 2021-08-22 07:39 | RAD REPORT ---
EXAM DESCRIPTION: RAD - Wrist Right 3 View - 08/22/2021 5:59 am CLINICAL HISTORY: PAIN COMPARISON: Wrist Right 3 View dated 07/07/2020 FINDINGS/IMPRESSION: No acute fracture. No dislocation. Radiocarpal and ulnocarpal joint space narro wing. Chondrocalcinosis noted at the [facility].
[2021-08-22 07:42] LABS: Uric Acid 1.7 mg/dL (2.6-6.0)
[2021-08-22 07:47] LABS: AST/SGOT 21 U/L (15-37); Potassium 3.8 mmol/L (3.5-5.1)
[2021-08-22 07:49] VITALS: BP 133/57; TEMP 97; O2SAT 98
== END 2021-08-22 07:44 | disposition home or self-care (01) ==
LOC: ER 04:27
DX: M10.9 Gout, unspecified (principal); M25.531 Pain in right wrist; M25.511 Pain in right shoulder; E11.9 Type 2 diabetes mellitus without complications; Z88.0 Allergy status to penicillin; Z88.5 Allergy status to narcotic agent; Z88.6 Allergy status to analgesic agent
CPT/HCPCS: 85025; 36415; 84550; 80053; 73030; 73110; 96375; 96374; 99284; J3010 ×2; J1100; J7040; J2405

== ENCOUNTER 2022-07-10 23:32 | Emergency (ER) | payer OTHER ==
[2022-07-11] MEDS ORDERED: DIAZEPAM 5 MG TABLET ONE (00:16)
[2022-07-11 01:01] LABS: Absolute Lymphocytes (CBC) 1.2 K/uL (0.7-4.9); Hematocrit 39.7 % (36.0-45.0); Lymphocytes % 20.4 % (15.3-44.8); MPV 6.7 fL (7.6-11.3); RBC Red Blood Cell Count 4.46 M/uL (3.86-4.86)
[2022-07-11] MEDS ORDERED: MORPHINE 2 MG/ML SYR ONE ×3 (01:11→08:48)
[2022-07-11 01:14] LABS: Potassium 3.6 mmol/L (3.5-5.1)
[2022-07-11] MEDS ORDERED: MORPHINE 2 MG/ML SYR IV ONE (04:42)
--- NOTE | 2022-07-11 07:18 | ER ---
Nurse's Notes [facility] Name: Rosario Busch Age: 77 yrs Sex: Female : 1945 Arrival Date: 07/10/2022 Time: 23:45 Bed 11 Private MD: Diagnosis: Unspecified symptoms and signs involving the musculoskeletal system-SPASM/STRAIN;Essential (primary) hypertension;Cerebral aneurysm, nonruptured-4.7X4.6X3.6 MM RIGHT MIDDLE CEREBRAL ANEURYSM Presentation: 07/11 00:03 Chief complaint: Patient states: "The pain started yesterday, it just started out kb3 light, but then tonight it got unbearable." Patient states that the pain is primarily located on the right side of her neck and shoulder. Chief complaint: Patient states: "It feels like a pulling sensation". Coronavirus screen: Vaccine status: Patient reports being unvaccinated. Ebola Screen: Patient negative for fever greater than or equal to 101.5 degrees Fahrenheit, and additional compatible Ebola Virus Disease symptoms Patient denies exposure to infectious person. Patient denies travel to an Ebola-affected area in the 21 days before illness onset. Initial Sepsis Screen: Does the patient meet any 2 criteria? No. Patient's initial sepsis screen is negative. Does the patient have a suspected source of infection? No. Patient's initial sepsis screen is negative. Risk Assessment: Do you want to hurt yourself or someone else? Patient reports no desire to harm self or others. Onset of symptoms was July 10, 2022. 00:03 Method Of Arrival: Ambulatory kb3 00:03 Acuity: VIVIANE 3 kb3 Triage Assessment: 00:07 General: Appears uncomfortable, Behavior is calm, cooperative, appropriate for age. kb3 Pain: Pain currently is 9 out of 10 on a pain scale. Historical: - Allergies: 00:07 Codeine; kb3 00:07 Naproxen; kb3 00:07 PENICILLINS; kb3 00:07 Vicodin; kb3 - Home Meds: 00:07 Align 4 mg Oral cap [Active]; cyanocobalamin (vitamin B-12) 1,000 mcg Oral tab daily kb3 [Active]; Jardiance 25 mg Oral tab 1 tab once daily [Active]; Vitamin D3 Oral [Active]; - PMHx: 00:07 Diabetes - IDDM; kb3 - PSHx: 00:07 breast CA-lumpectomy R; kb3 - Immunization history:: Flu vaccine is up to date. - Social history:: Smoking status: Patient denies any tobacco usage or history of. Screenin:20 Abuse screen: Denies threats or abuse. Denies injuries from another. Nutritional tw5 screening: No deficits noted. Tuberculosis screening: No symptoms or risk factors identified. Fall Risk None identified. Assessment: 00:20 Pain: Complains of pain in right posterior aspect of neck and right side of neck Pain tw5 radiates to right trapezius Pain currently is 9 out of 10 on a pain scale. Neuro: Level of Consciousness is awake, alert, obeys commands, Oriented to person, place, time, situation. 01:10 Reassessment: Patient states feeling better. Patient states symptoms have improved. tw5 Pain: Pain currently is 7 out of 10 on a pain scale. 03:39 General: "I just feel that pulling sensation on my neck.". tw5 06:25 General: Appears uncomfortable, Behavior is calm, cooperative, appropriate for age. tw5 Pain: Pain currently is 6 out of 10 on a pain scale. 09:08 Reassessment: pt medicated for pain, will hold BP med at this time , family at bedside, iw updated on POC, pending transfer to [facility]. Vital Signs: 00:03 BP 155 / 90; Pulse 73; Resp 18; Temp 97.8; Pulse Ox 97% ; Weight 53.98 kg; Height 4 ft. kb3 11 in. (149.86 cm); Pain 9/10; 01:09 Pain 7/10; tw5 01:14 BP 134 / 92; Pulse 65; Resp 18; Pulse Ox 99% on R/A; Pain 7/10; tw5 03:25 Pain 5/10; tw5 03:39 BP 146 / 90; Pulse 65; Resp 18; Pulse Ox 100% on R/A; tw5 06:25 Pulse 65; Resp 20; Pulse Ox 100% on R/A; tw5 09:08 BP 129 / 65; Pulse 63; Resp 16; Pulse Ox 98% on R/A; iw 00:03 Body Mass Index 24.03 (53.98 kg, 149.86 cm) kb3 NIH Stroke Scale Scores: 08:32 NIHSS Score: 0 [facility] ED Course: 07/10 23:45 Patient arrived in ED. ja2 23:48 Jermaine Gonzalez DO is Attending Physician. ms3 1203 00:06 Triage completed. kb3 00:07 Arm band placed on Patient placed in an exam room. kb3 00:20 Javier Carito is Primary Nurse. tw5 00:[address] Scan. tw5 00:20 Patient has correct armband on for positive identification. tw5 00:20 No provider procedures requiring assistance completed. tw5 02:01 CT Neck Angio In Process Unspecified. EDMS 03:39 Pulse ox on. NIBP on. Door closed. Noise minimized. Moved to private room. Warm blanket tw5 given. Verbal reassurance given. 07:08 CT Head Angio In Process Unspecified. EDMS 07:15 initiated a transfer Matheus from the [facility] at the request of the eb patient. 07:17 Attending Physician role handed off by Jermaine Gonzalez DO [place] 07:17 Addison Gamboa MD is Attending Physician. [place] 07:21 Matheus from the [facility] says per his "DOD" they will have to decline eb they patient in transfer due to all floors including the ED is at saturation. 07:29 initiated a transfer with Holli Rashid from the [facility]. eb 07:[address] Barone the neurologist systems development consultant for [facility] with Dr. Gamboa for eb patient transfer consultation. 08:12 Mario Garcia MD is Referral Physician. carr[place] 09:09 IV is patent, 22 LFA inserted by previous shift . iw 11:03 administrative approval given by Holli Rashid / patient has been accepted to [facility] bed 943/ Dr. Von Escamilla has accepted the patient in transfer/ report to be called to [phone]. Administered Medications: 00:21 Drug: Valium (diazepam) 5 mg Route: PO; tw5 01:09 Follow up: Pain 7/10 Adult; Response: No adverse reaction; Pain is decreased; RASS: tw5 Alert and Calm (0) 01:14 Drug: morphine 2 mg Route: IVP; Infused Over: 4 mins; Site: left wrist; tw5 03:25 Follow up: Pain 5/10 Adult; Response: No adverse reaction; Pain is decreased; RASS: tw5 Alert and Calm (0) 04:00 Drug: morphine 2 mg Route: IVP; Infused Over: 4 mins; Site: left wrist; tw5 05:00 Follow up: Response: No adverse reaction; RASS: Alert and Calm (0) tw5 08:50 Drug: Decadron - Dexamethasone 10 mg Route: IVP; Site: left forearm; iw 09:00 Drug: morphine 2 mg Route: IVP; Infused Over: 4 mins; Site: left forearm; iw 09:10 Drug: Magnesium Sulfate 2 grams Route: IVPB; Infused Over: 2 hrs; Site: left forearm; iw 11:20 Follow up: Response: No adverse reaction; IV Status: Completed infusion; IV Intake: kb3 100ml 09:11 Drug: Zofran (Ondansetron) 4 mg Route: IVP; Site: left forearm; iw Medication: 00:20 VIS not applicable for this client. tw5 Intake: 11:20 IV: 100ml; Total: 100ml. kb3 Outcome: 07:17 ER care complete, transfer ordered by MD. ms3 08:15 Discharge ordered by MD. carrillo 08:20 ER care complete, transfer ordered by MD. carrillo 12:43 Patient left the ED. NIH Stroke Scale - NIH Stroke Score Date: 07/11/2022 Time: 08:32 Total Score = 0 1a. Level of Consciousness (LOC) - 0(Alert) 1b. Level of Consciousness (LOC) (Month \\T\\ Age) - 0(Both) 1c. LOC Commands (Open \\T\\ Closes Eyes/Wedding Designer) - 0(Both) 2. Best Gaze (Lateral Gaze Paresis) - 0(Normal) 3. Visual Field Loss - 0(No visual loss) 4. Facial Palsy - 0(Normal) 5a. Left Arm: Motor (10-second hold) - 0(No drift) 5b. Right Arm: Motor (10-second hold) - 0(No drift) 6a. Left Leg: Motor (5-second hold - always test supine) - 0(No drift) 6b. Right Leg: Motor (5-second hold - always test supine) - 0(No drift) 7. Limb Ataxia (finger/nose \\T\\ heel/brewster - test with eyes open) - 0(Absent) 8. Sensory Loss (pinprick arms/legs/face) - 0(Normal) 9. Best Language: Aphasia (description/naming/reading) - 0(No aphasia) 10. Dysarthria (speech clarity - read or repeat words) - 0(Normal) 11. Extinction and Inattention (visual/tactile/auditory/spatial/personal) - 0(No abnormality) Initials: car[place] Signatures: Dispatcher [employer] EDAddison Wick MD MD cha Williams, Irene, RN RN iw Botello, Elizabeth eb Sims, Marcus, DO DO ms3 Jaquelin Sylvester2 Carito Herrera tw5 Yamila Cox RN RN kb3 Corrections: (The following items were deleted from the chart) 07:32 07:15 initiated a transfer Matheus from the [facility]. jose manuel richard
--- NOTE | 2022-07-11 07:18 | EDPHYS ---
Physician Documentation [facility] Name: Rosario Busch Age: 77 yrs Sex: Female : 1945 Arrival Date: 07/10/2022 Time: 23:45 Bed 11 Private MD: ED Physician Addison Gamboa HPI: 07/11 00:29 This 77 yrs old Female presents to ER via Ambulatory with complaints of Neck ms3 and Upper Back Pain. 00:29 The patient or guardian complains of pain, that is acute. The symptoms are located ms3 Right sided. Onset: The symptoms/episode began/occurred yesterday. Context:. Associated signs and symptoms: Pertinent negatives: constipation, fever, headache, nausea, numbness, tingling, vomiting, weakness. The pain does not radiate. Modifying factors: The symptoms are alleviated by nothing. the symptoms are aggravated by movement. Severity of symptoms: At their worst the symptoms were severe, in the emergency department the symptoms are unchanged, a " 9" out of "10". Historical: - Allergies: 00:07 Codeine; kb3 00:07 Naproxen; kb3 00:07 PENICILLINS; kb3 00:07 Vicodin; kb3 - Home Meds: 00:07 Align 4 mg Oral cap [Active]; cyanocobalamin (vitamin B-12) 1,000 mcg Oral tab daily kb3 [Active]; Jardiance 25 mg Oral tab 1 tab once daily [Active]; Vitamin D3 Oral [Active]; - PMHx: 00:07 Diabetes - IDDM; kb3 - PSHx: 00:07 breast CA-lumpectomy R; kb3 - Immunization history:: Flu vaccine is up to date. - Social history:: Smoking status: Patient denies any tobacco usage or history of. ROS: 00:29 Constitutional: Negative for fever, and chills. Eyes: Negative for injury, pain, ms3 redness, and discharge, Cardiovascular: Negative for chest pain, and palpitations. Respiratory: Negative for shortness of breath, cough, wheezing, and pleuritic chest pain, Abdomen/GI: Negative for abdominal pain, nausea, vomiting, diarrhea, and constipation, MS/Extremity: Negative for injury and deformity, Skin: Negative for injury, rash, and discoloration, Neuro: Negative for headache, weakness, numbness, tingling. Psych: Negative for depression, anxiety, suicide ideation, homicidal ideation, and hallucinations. 00:29 Neck: Positive for pain with movement, tenderness. Exam: 00:29 Constitutional: This is a well developed, well nourished patient who is awake, alert, ms3 and in no acute distress. Head/Face: Normocephalic, atraumatic. Chest/axilla: Normal chest wall appearance and motion. Nontender with no deformity. Cardiovascular: Regular rate and rhythm with a normal S1 and S2. No gallops, murmurs, or rubs. Normal PMI, no JVD. No pulse deficits. Respiratory: Lungs have equal breath sounds bilaterally, clear to auscultation and percussion. No rales, rhonchi or wheezes noted. No increased work of breathing, no retractions or nasal flaring. Abdomen/GI: Soft, non-tender, with normal bowel sounds. No distension or tympany. No guarding or rebound. No evidence of tenderness throughout. Skin: Warm, dry with normal turgor. Normal color with no rashes, no lesions, and no evidence of cellulitis. MS/ Extremity: Pulses equal, no cyanosis. Neurovascular intact. Full, normal range of motion. 00:29 Neck: External neck: no acute changes, tenderness, that is moderate, of the right trapezius and right side of neck and right posterior aspect of neck, Trachea: is midline with no obvious abnormalities, ROM/movement: is normal. Vital Signs: 00:03 BP 155 / 90; Pulse 73; Resp 18; Temp 97.8; Pulse Ox 97% ; Weight 53.98 kg; Height 4 ft. kb3 11 in. (149.86 cm); Pain 9/10; 01:09 Pain 7/10; tw5 01:14 BP 134 / 92; Pulse 65; Resp 18; Pulse Ox 99% on R/A; Pain 7/10; tw5 03:25 Pain 5/10; tw5 03:39 BP 146 / 90; Pulse 65; Resp 18; Pulse Ox 100% on R/A; tw5 06:25 Pulse 65; Resp 20; Pulse Ox 100% on R/A; tw5 09:08 BP 129 / 65; Pulse 63; Resp 16; Pulse Ox 98% on R/A; iw 00:03 Body Mass Index 24.03 (53.98 kg, 149.86 cm) kb3 NIH Stroke Scale Scores: 08:32 NIHSS Score: 0 [place] MDM: 00:09 Patient medically screened. ms3 00:32 Differential diagnosis: arthritis, Cervical Disc Herniation Vertebral artery dissection ms3 vs muscle spasm. 07:17 Data reviewed: vital signs, nurses notes, lab test result(s), radiologic studies, and ms3 as a result, I will transfer. Counseling: I had a detailed discussion with the patient and/or guardian regarding: the historical points, exam findings, and any diagnostic results supporting the discharge/admit diagnosis, lab results, radiology results, the need to transfer to another facility. ED course: Discussed case with Neurology, Dr Garcia, and he recommends patient be transferred for 4 vessel angio. Discussed plan with patient and she understands/ agrees with plan.. 07:18 Data reviewed: vital signs, nurses notes, lab test result(s), radiologic studies, CT [place] scan. Data interpreted: monitoring analyst: rate is 65 beats/min, rhythm is regular, Pulse oximetry: on room air is 100 %. 12 00:10 Order name: CBC with Diff; Complete Time: 01:20 ms3 07/11 00:10 Order name: BMP; Complete Time: 01:20 ms3 07/11 00:10 Order name: CT Neck Angio ms3 07/11 02:57 Order name: CT Head Angio ms3 07/11 07:19 Order name: SARS RAPID; Complete Time: 08:06 eb 07/11 09:20 Order name: Diet Regular; Complete Time: 09:20 iw Administered Medications: 00:21 Drug: Valium (diazepam) 5 mg Route: PO; tw5 01:09 Follow up: Pain 7/10 Adult; Response: No adverse reaction; Pain is decreased; RASS: tw5 Alert and Calm (0) 01:14 Drug: morphine 2 mg Route: IVP; Infused Over: 4 mins; Site: left wrist; tw5 03:25 Follow up: Pain 5/10 Adult; Response: No adverse reaction; Pain is decreased; RASS: tw5 Alert and Calm (0) 04:00 Drug: morphine 2 mg Route: IVP; Infused Over: 4 mins; Site: left wrist; tw5 05:00 Follow up: Response: No adverse reaction; RASS: Alert and Calm (0) tw5 08:50 Drug: Decadron - Dexamethasone 10 mg Route: IVP; Site: left forearm; iw 09:00 Drug: morphine 2 mg Route: IVP; Infused Over: 4 mins; Site: left forearm; iw 09:10 Drug: Magnesium Sulfate 2 grams Route: IVPB; Infused Over: 2 hrs; Site: left forearm; iw 11:20 Follow up: Response: No adverse reaction; IV Status: Completed infusion; IV Intake: kb3 100ml 09:11 Drug: Zofran (Ondansetron) 4 mg Route: IVP; Site: left forearm; iw Disposition Summary: 07/11/22 08:20 Transfer Ordered Transfer Location: [facility](07/11/22 08:20) [place] Reason: Higher level of care(07/11/22 08:20) [place] Condition: Fair(07/11/22 08:20) [place] Problem: new(07/11/22 08:20) [place] Symptoms: have improved(07/11/22 08:20) [place] Accepting Physician: TO [facility](07/11/22 12:43) iw Diagnosis - Unspecified symptoms and signs involving the musculoskeletal system - [place] SPASM/STRAIN(07/11/22 08:20) - Essential (primary) hypertension(07/11/22 08:20) [place] - Cerebral aneurysm, nonruptured - 4.7X4.6X3.6 MM RIGHT MIDDLE CEREBRAL [place] ANEURYSM(07/11/22 08:20) Forms: - Medication Reconciliation Form carr[place] - SBAR form [place] NIH Stroke Scale - NIH Stroke Score Date: 07/11/2022 Time: 08:32 Total Score = 0 1a. Level of Consciousness (LOC) - 0(Alert) 1b. Level of Consciousness (LOC) (Month \\T\\ Age) - 0(Both) 1c. LOC Commands (Open \\T\\ Closes Eyes/Director Business Travel) - 0(Both) 2. Best Gaze (Lateral Gaze Paresis) - 0(Normal) 3. Visual Field Loss - 0(No visual loss) 4. Facial Palsy - 0(Normal) 5a. Left Arm: Motor (10-second hold) - 0(No drift) 5b. Right Arm: Motor (10-second hold) - 0(No drift) 6a. Left Leg: Motor (5-second hold - always test supine) - 0(No drift) 6b. Right Leg: Motor (5-second hold - always test supine) - 0(No drift) 7. Limb Ataxia (finger/nose \\T\\ heel/brewster - test with eyes open) - 0(Absent) 8. Sensory Loss (pinprick arms/legs/face) - 0(Normal) 9. Best Language: Aphasia (description/naming/reading) - 0(No aphasia) 10. Dysarthria (speech clarity - read or repeat words) - 0(Normal) 11. Extinction and Inattention (visual/tactile/auditory/spatial/personal) - 0(No abnormality) Initials: carr[place] Signatures: Dispatcher [employer] EDMS Addison Gamboa MD MD cha Williams, Irene RN RN iw Jermaine Gonzalez DO DO ms3 Carito Herrera tw5 Yamila Cox RN RN kb3 Corrections: (The following items were deleted from the chart) 07:30 07:17 Dr ms3 carr[place] 07:30 07:17 [employer] ms3 carr[place] 07:48 07:30 car[place] carr[place] 08:12 07:17 Higher level of care ms3 carr[place] 08:12 07:17 Stable ms3 carr[place] 08:12 07:17 new ms3 carr[place] 08:12 07:17 are unchanged ms3 carr[place] 08:12 07:17 Middle Cerebral Artery aneurysm ms3 carr[place] 08:12 07:17 Right Sided neck pain ms3 carr[place] 08:12 07:17 Essential (primary) hypertension ms3 carr[place] 08:12 07:30 [facility] carrillo carrillo 08:12 07:48 Dr HOSPITALIST carrillo carrillo 08:17 08:15 Home carr[place] carrillo 08:17 08:15 new carr[place] carrillo 08:17 08:15 have improved carrillo carrillo 08:17 08:15 Stable carr[place] carrillo 08:17 08:15 Cerebral aneurysm, nonruptured - 4.7X4.6X3.6 MM RIGHT MIDDLE CEREBRAL carrillo ARTERY carrillo 08:17 08:15 Essential (primary) hypertension carr[place] carrillo 08:17 08:15 Type 1 diabetes mellitus with hyperglycemia carrillo carrillo 08:17 08:16 Unspecified symptoms and signs involving the musculoskeletal system - carrillo STRAN/SPASM carrillo 12:43 08:[address] [facility] carr[place] iw
[2022-07-11 07:58] LABS: SARS-CoV-2 Antigen Rapid Res Negative (Negative)
[2022-07-11] MEDS ORDERED: dexAMETHasone 10 MG/ML VIAL ONE (08:48)
[2022-07-11] MEDS ORDERED: LABETALOL HCL 100 MG TAB ONE (08:48)
[2022-07-11] MEDS ORDERED: ONDANSETRON 4 MG/2 ML VIAL ONE (08:48)
[2022-07-11] MEDS ORDERED: Magnesium Sulfate 2gm IVPB 2 G/50 ML BAG IV ONE (08:49)
[2022-07-11] MEDS ORDERED: LABETALOL 20 MG/4ML SYRINGE IV ONE (08:49)
[2022-07-11 12:48] VITALS: TEMP 97.8
[2022-07-11 12:54] VITALS: BP 129/65; O2SAT 98
--- NOTE | 2022-07-11 18:37 | RAD REPORT ---
EXAM DESCRIPTION: CT - Neck Angio - 07/11/2022 7:15 am CLINICAL HISTORY: The patient is 77 years old and is Female; Neck pain, acute, no red flags TECHNIQUE: Axial computed tomographic angiography images of the neck with intravenous contrast. [facility] CT exam was performed using one or more of the following dose reduction techniques: automated ex posure control, adjustment of the mA and/or kV according to patient size, and/or use of iterative rec onstruction technique. MIP reconstructed images were created and reviewed. DLP: 264 mGy*cm COMPARISON: CT cervical spine dated 06/11/2021. FINDINGS: VASCULATURE: RIGHT COMMON CAROTID ARTERY: No significant stenosis. No dissection or occlusion. RIGHT INTERNAL CAROTID ARTERY: Extracranial segment is patent with no significant stenosis. No di ssection or occlusion. RIGHT EXTERNAL CAROTID ARTERY: No occlusion. RIGHT VERTEBRAL ARTERY: No significant stenosis. No dissection or occlusion. LEFT COMMON CAROTID ARTERY: No significant stenosis. No dissection or occlusion. LEFT INTERNAL CAROTID ARTERY: Extracranial segment is patent with no significant stenosis. No dis section or occlusion. LEFT EXTERNAL CAROTID ARTERY: No occlusion. LEFT VERTEBRAL ARTERY: No significant stenosis. No dissection or occlusion. OTHER VASCULATURE: Partial evaluation of intracranial vasculature with evidence of 5 mm aneurysm at the bifurcation of the right MCA, M1 segment. NECK: BONES/JOINTS: Advanced multilevel multifactorial degenerative changes. Unchanged midcervical postsu rgical changes. No acute fracture. No dislocation. SOFT TISSUES: Unremarkable as visualized. No mass. CAROTID STENOSIS REFERENCE USING NASCET CRITERIA: % ICA stenosis = (1 - narrowest ICA diameter/diameter of distal cervical ICA) x 100. Mild - <50% stenosis. Moderate - 50-69% stenosis. Severe - 70-94% stenosis. Near occlusion - 95-99% stenosis. Occluded - 100% stenosis. IMPRESSION: No cervical flow limiting stenosis. Partial evaluation of intracranial vasculature with evidence of 5 mm aneurysm at the bifurcation of t he right MCA, M1 segment. Dedicated CTA head is recommended. Electronically signed by: Flako Miller DO 07/11/2022 2:39 AM REAL ESTATE INVESTOR Due to temporary technical issues with the PACS/Fluency reporting system, reports are being signed by the in house radiologists without review as a courtesy to insure prompt reporting. The interpreting radiologist is fully responsible for the content of the report.
--- NOTE | 2022-07-11 18:48 | RAD REPORT ---
EXAM DESCRIPTION: CT - Head angio - 07/11/2022 7:19 am CLINICAL HISTORY: Neck pain COMPARISON: None. TECHNIQUE: Head CTA axial images acquired with 75 mL Isovue 370 IV contrast. Coronal and sagittal CT A MIPs and MPRs created. 3D volume rendered images created. Exam performed according to departmental dose-optimization program which includes automated exposure control, adjustment of mA and/or kV accor ding to patient size, and/or use of iterative reconstruction technique. FINDINGS: Both intracranial vertebral, both posterior communicating, and basilar arteries patent. Small diameter or atretic bilateral posterior cerebral artery P1 segments (normal variant). Persisten t origins of bilateral posterior cerebral arteries (normal variant). Small diameter intracranial right vertebral artery (likely normal variant). Right and left internal carotid arteries' cavernous segments show mild calcified atherosclerotic plaq ues causing mild stenosis (about 10% diameter stenosis). Both intracranial internal carotid, both middle cerebral, anterior communicating, and both anterior c erebral arteries patent. Right middle cerebral artery bifurcation aneurysm measures about 4.7 x 4.6 x 3.6 mm. IMPRESSION: 1. Moderate-sized right middle cerebral artery bifurcation aneurysm measures about 4.7 x 4.6 x 3.6 mm. 2. Right and left internal carotid arteries' cavernous segments show mild calcified atherosclerotic p laques causing mild stenosis (about 10% diameter stenosis). Electronically signed by: Dionte Morales MD 07/11/2022 6:31 AM KNOBBER Due to temporary technical issues with the PACS/Fluency reporting system, reports are being signed by the in house radiologists without review as a courtesy to insure prompt reporting. The interpreting radiologist is fully responsible for the content of the report.
== END 2022-07-11 12:43 | disposition short-term general hospital (02) ==
LOC: ER 23:32
DX: I67.1 Cerebral aneurysm, nonruptured (principal); R29.91 Unspecified symptoms and signs involving the musculoskeletal system; I10 Essential (primary) hypertension; E11.9 Type 2 diabetes mellitus without complications; Z20.822 Contact with and (suspected) exposure to COVID-19; Z88.0 Allergy status to penicillin; Z88.5 Allergy status to narcotic agent
CPT/HCPCS: 85025; 80048; 36415; 70496; 70498; 99283; 87811; Q9967 ×2; J1100; J2270 ×3; J3475; J2405

== ENCOUNTER 2023-10-20 11:43 | Observation (INO) | payer OTHER ==
[2023-10-20] MEDS ORDERED: NITROGLYCERIN 0.4 MG/TAB SL ONE (13:18)
[2023-10-20] MEDS ORDERED: ASPIRIN 81 MG CHEWABLE TABLET ONE (13:18)
[2023-10-20 14:23] LABS: Absolute Basophils 0.1 K/uL (0-0.5); Absolute Eosinophils 0.1 K/uL (0-0.5); Absolute Lymphocytes (CBC) 1.1 K/uL (0.7-4.9); Absolute Monocytes 0.7 K/uL (0.1-1.3); Absolute Neutrophil 5.1 K/uL (1.8-8.0); Basophils % 0.8 % (0-1.3); Eosinophils % 1.8 % (0-4.4); Hematocrit 39.7 % (36.0-45.0); Hemoglobin 13.8 g/dL (12.0-15.0); MCH 30.8 pg (27.0-35.0); MCHC 34.8 g/dL (32.0-36.0); MCV 88.7 fL (80-100); Monocytes % 10.1 % (3.3-12.3); Neutrophils % 71.3 % (41.7-73.7); Platelets 311 thou/uL (152-406); RBC Red Blood Cell Count 4.47 M/uL (3.86-4.86); Red Cell Distribution Width 12.9 % (12.1-15.2)
[2023-10-20 14:40] LABS: Albumin 3.3 g/dL (3.4-5.0); Albumin/Globulin Ratio 0.9 (1.1-1.8); Bilirubin Direct 0.1 mg/dL (0-0.2); Bilirubin Indirect, Calculated 0.4 mg/dL (0.2-0.8); Bilirubin Total 0.5 mg/dL (0.2-1.0); Globulin 3.6 g/dL (2.3-3.5); Protein, Total 6.9 g/dL (6.4-8.2)
--- NOTE | 2023-10-20 15:10 | RAD REPORT ---
EXAM DESCRIPTION: RAD - Shoulder Left 2 View - 10/20/2023 1:46 pm CLINICAL HISTORY: PAIN COMPARISON: <Comparisons> TECHNIQUE: Internal and external rotation views of the left shoulder were obtained. FINDINGS: There is no fracture or dislocation. AC joint moderate degenerative changes. Mild joint is well aligned. Calcification adjacent to the greater tuberosity may relate to sequelae of calcific te ndinitis. IMPRESSION: No acute osseous abnormality. Calcification adjacent to the greater tuberosity may relat e to sequelae of calcific tendinitis.
--- NOTE | 2023-10-20 15:14 | RAD REPORT ---
EXAM DESCRIPTION: RAD - Wrist Left 3 View - 10/20/2023 1:46 pm CLINICAL HISTORY: PAIN COMPARISON: Wrist Left 3 View dated 08/20/2011 TECHNIQUE: Left wrist, 3 views. FINDINGS: No acute fracture. Volar distal radial plating hardware. There is no dislocation or perios teal reaction noted. No focal osseous lesions. Moderate degenerative changes of the wrist, most prono unced at the radiocarpal articulation, with mineralization along the region of the TFCC. IMPRESSION: No acute osseous abnormality. Mineralization along the TFCC region, may relate to minera lizing arthropathy such as CPPD.
--- NOTE | 2023-10-20 15:15 | RAD REPORT ---
[facility] CLINICAL HISTORY: CHEST PAIN COMPARISON: Chest Single View dated 10/10/2023; Chest Single View dated 06/01/2017; CHEST SINGLE VIEW dated 10/03/2015; CHEST SINGLE VIEW dated 10/02/2015 TECHNIQUE: Portable AP view of the chest. FINDINGS: The lungs are clear. No pneumothorax or effusion. The cardiomediastinal contours are unre markable. IMPRESSION: No acute cardiopulmonary process.
--- NOTE | 2023-10-20 15:18 | RAD REPORT ---
EXAM DESCRIPTION: RAD - Elbow Left 3 View - 10/20/2023 1:46 pm CLINICAL HISTORY: PAIN COMPARISON: No comparisons TECHNIQUE: Left elbow, 3 views. FINDINGS: No fracture is identified. No elevated posterior fat pad to suggest an effusion. Moderate degenerative changes at the radiocapitellar and ulnotrochlear articulations. There is no dislocation or periosteal reaction noted. No foreign body or other soft tissue abnormalit y. IMPRESSION: No acute osseous abnormality. Moderate degenerative changes as above.
--- NOTE | 2023-10-20 15:43 | EDPHYS ---
Physician Documentation [facility] Name: Rosario Busch Age: 78 yrs Sex: Female : 1945 Arrival Date: 10/20/2023 Time: 11:43 Bed 18 Private MD: ED Physician Mariusz Pickard HPI: 10/19 14:18 This 78 yrs old Female presents to ER via Wheelchair with complaints of Chest rt Pain. 14:18 Patient presents to the ED with intermittent chest pain for the past 2 days. Pain is rt substernal, radiates to the left arm. Denies other acute complaints at this time, symptoms are moderate in severity, no other aggravating alleviating factors. Historical: - Allergies: 12:00 Codeine; ll1 12:00 Naproxen; ll1 12:00 PENICILLINS; ll1 12:00 Vicodin; ll1 - PMHx: 12:00 CEREBRAL ANEURYSM; Diabetes - IDDM; stroke (breast CA-lumpectomy R); ll1 - PSHx: 12:00 Aneurysm clip 2021; breast CA-lumpectomy R; ll1 - Immunization history:: Adult Immunizations up to date. - Social history:: Smoking status: Patient denies any tobacco usage or history of. - Family history:: not pertinent. ROS: 14:18 Constitutional: Negative for fever, chills, and weight loss, Respiratory: Negative for rt shortness of breath, cough, wheezing, and pleuritic chest pain, Abdomen/GI: Negative for abdominal pain, nausea, vomiting, diarrhea, and constipation, MS/Extremity: Negative for injury and deformity, Skin: Negative for injury, rash, and discoloration, Neuro: Negative for headache, weakness, numbness, tingling, and seizure, 14:18 Cardiovascular: Positive for chest pain, Negative for edema, Exam: 14:18 Constitutional: This is a well developed, well nourished patient who is awake, alert, rt and in no acute distress. Head/Face: Normocephalic, atraumatic. Chest/axilla: Normal chest wall appearance and motion. Nontender with no deformity. No lesions are appreciated. Cardiovascular: Regular rate and rhythm with a normal S1 and S2. No gallops, murmurs, or rubs. Normal PMI, no JVD. No pulse deficits. Respiratory: Lungs have equal breath sounds bilaterally, clear to auscultation and percussion. No rales, rhonchi or wheezes noted. No increased work of breathing, no retractions or nasal flaring. Abdomen/GI: Soft, non-tender, with normal bowel sounds. No distension or tympany. No guarding or rebound. No evidence of tenderness throughout. Skin: Warm, dry with normal turgor. Normal color with no rashes, no lesions, and no evidence of cellulitis. Neuro: Awake and alert, GCS 15, oriented to person, place, time, and situation. Cranial nerves II-XII grossly intact. Motor strength 5/5 in all extremities. Sensory grossly intact. Cerebellar exam normal. Normal gait. 14:18 ECG was reviewed by the Attending Physician. Vital Signs: 11:58 BP 139 / 71; Pulse 81; Resp 17; Temp 97.6; Pulse Ox 99% ; Weight 51.26 kg; Height 4 ft. ll1 11 in. ; Pain 8/10; 12:30 BP 135 / 86; Pulse 83; Resp 17; Pulse Ox 99% on R/A; iw 13:35 BP 125 / 75; Pulse 77; Resp 18; Pulse Ox 98% on R/A; iw 15:08 BP 115 / 56; Pulse 65; Resp 18; Temp 98.1; Pulse Ox 98% on R/A; ap3 11:58 Body Mass Index 22.82 (51.26 kg, 149.86 cm) ll1 11:58 Pain Scale: Adult ll1 MDM: 12:04 Patient medically screened. rt 15:47 Differential diagnosis: abnormal EKG, acute myocardial infarction, acute pericarditis, rt coronary artery disease chest wall pain, congestive heart failure. HEART Score: History: Highly Suspicious (2), ECG: Non specific repolarization disturbance / LBTB / PM (1), Age: > or = 65 years (2), Risk Factors: > or = 3 Risk factors for atherosclerotic disease (2), Troponin: < or = 1 x Normal Limit (0), Total Score = 7. The patient was given aspirin in the Emergency Department. Data reviewed: vital signs, nurses notes, lab test result(s), EKG, radiologic studies. Consideration of Admission/Observation Patient was admitted/placed on observation. Management of patient was discussed with the following: Hospitalist: Agrees to admit. I considered the following discharge prescriptions or medication management in the emergency department Medications were administered in the Emergency Department. See MAR. Independent interpretation of the following test(s) in the Emergency Department X-Ray: My interpretation is No pneumonia seen on interpretation of x-ray images. Test considered but Not performed: CT: Low suspicion for PE, CT angiogram not indicated. Care significantly affected by the following chronic conditions: Diabetes. Counseling: I had a detailed discussion with the patient and/or guardian regarding the historical points, exam findings, and any diagnostic results supporting the discharge/admit diagnosis, lab results, radiology results, the need for further work-up and treatment in the hospital. Response to treatment: the patient's symptoms have markedly improved after treatment. 10/19 12:13 Order name: Basic Metabolic Panel; Complete Time: 14:45 rt 10/19 12:13 Order name: CBC with Diff; Complete Time: 14:45 rt 10/19 12:13 Order name: LFT's; Complete Time: 14:45 rt 10/19 12:13 Order name: Magnesium; Complete Time: 14:45 rt 10/19 12:13 Order name: Troponin HS; Complete Time: 14:45 rt 10/19 22:51 Order name: Troponin High Sensitivity EDMS 10/19 12:13 Order name: XRAY Chest (1 view); Complete Time: 15:25 rt 10/19 12:13 Order name: Shoulder Left (2 View) XRAY; Complete Time: 15:15 rt 10/19 12:13 Order name: Elbow Left 3 View XRAY; Complete Time: 15:25 rt 10/19 12:13 Order name: Wrist Left (3 View) XRAY; Complete Time: 15:15 rt 10/19 16:47 Order name: Chest Wo Con CT la1 10/19 16:47 Order name: Hip Left 2 View XRAY la1 10/19 18:48 Order name: CT EDMS 10/19 19:35 Order name: RAD EDMS 10/19 12:13 Order name: EKG; Complete Time: 12:14 rt 10/19 12:13 Order name: Cardiac monitoring; Complete Time: 14:09 rt 10/19 12:13 Order name: EKG - Nurse/Tech; Complete Time: 12:13 rt 10/19 12:13 Order name: IV Saline Lock; Complete Time: 14:04 rt 10/19 12:13 Order name: Labs collected and sent; Complete Time: 14: rt 10/19 12:13 Order name: O2 Per Protocol; Complete Time: : rt 10/19 12: Order name: O2 Sat Monitoring; Complete Time: 14: rt EC:18 Rate is 81 beats/min. Rhythm is regular, Normal Sinus Rhythm with No ectopy. QRS Sundance rt is Normal. GA interval is normal. QRS interval is normal. QT interval is normal. No Q waves. No ST changes noted. Interpreted by me. Administered Medications: 12:20 Drug: Nitroglycerin Sublingual 0.4 mg Sublingual once; every five minute if needed x3 iw Route: Sublingual; 12:25 Drug: Nitroglycerin Sublingual 0.4 mg Sublingual once; every five minute if needed x3 iw Route: Sublingual; 12:30 Drug: Nitroglycerin Sublingual 0.4 mg Sublingual once; every five minute if needed x3 iw Route: Sublingual; 12:35 Follow up: Response: No adverse reaction; Other; 3 doses of 0.4 sublingual nitro adm by iw me, pain relieved after third dose 12:40 Drug: Aspirin PO Chewable Tablet 324 mg PO once; 81 mg tablets x 4 Route: PO; iw 13:20 Follow up: Response: No adverse reaction rs5 15:44 Drug: fentaNYL (PF) IVP 25 mcg IVP once Route: IVP; Site: right hand; rs5 16:10 Follow up: Response: No adverse reaction; Pain is decreased rs5 Disposition Summary: 10/20/23 15:43 Hospitalization Ordered Notes: Hospitalization Status: Observation rt Provider: Shailesh Fong rt Condition: Stable rt Problem: new rt Symptoms: have improved rt Bed/Room Type: Standard rt Location: Telemetry/MedSurg (observation)(10/20/23 20:41) ty Room Assignment: 421(10/20/23 20:41) ty Diagnosis - Chest pain, unspecified rt Forms: - Medication Reconciliation Form rt - SBAR form rt - Leadership Thank You Letter rt Signatures: Dispatcher [employer] Summer Padilla RN RN iw Cristel Lewis RN RN ll1 Mariusz Pickard MD MD rt Rhys Dolan RN RN rs5 Liana Cruz bc6 Kenny Jenkins ty Corrections: (The following items were deleted from the chart) 16:49 15:43 Telemetry/MedSurg (observation) rt bc6 16:49 15:43 rt bc6 20:41 16:49 [facility] ER HOLD bc6 ty 20:41 16:49 ERHOLD- bc6 ty
--- NOTE | 2023-10-20 15:43 | ER ---
Nurse's Notes [facility] Name: Rosario Busch Age: 78 yrs Sex: Female : 1945 Arrival Date: 10/20/2023 Time: 11:43 Bed 18 Private MD: Diagnosis: Chest pain, unspecified Presentation: 10/19 11:58 Chief complaint: Patient states: L sided CP and L shoulder/neck pain began today. Has ll1 had this off/on sine beginning therapy. Here last week diagnosed with stroke. Coronavirus screen: Client denies travel out of the [place] in the last 14 days. At this time, the client does not indicate any symptoms associated with coronavirus-19. Ebola Screen: Patient denies travel to an Ebola-affected area in the 21 days before illness onset. Initial Sepsis Screen: Does the patient meet any 2 criteria? No. Patient's initial sepsis screen is negative. Does the patient have a suspected source of infection? No. Patient's initial sepsis screen is negative. Risk Assessment: Do you want to hurt yourself or someone else? Patient reports no desire to harm self or others. Onset of symptoms was October 20, 2023. 11:58 Method Of Arrival: Wheelchair ll1 11:58 Acuity: VIVIANE 2 ll1 Triage Assessment: 12:00 General: Appears uncomfortable, Behavior is calm, cooperative, appropriate for age. ll1 Pain: Complains of pain in L shoulder/chest Pain currently is 8 out of 10 on a pain scale. Cardiovascular: Reports chest pain. Historical: - Allergies: 12:00 Codeine; ll1 12:00 Naproxen; ll1 12:00 PENICILLINS; ll1 12:00 Vicodin; ll1 - PMHx: 12:00 CEREBRAL ANEURYSM; Diabetes - IDDM; stroke (breast CA-lumpectomy R); ll1 - PSHx: 12:00 Aneurysm clip 2021; breast CA-lumpectomy R; ll1 - Immunization history:: Adult Immunizations up to date. - Social history:: Smoking status: Patient denies any tobacco usage or history of. - Family history:: not pertinent. Screenin:46 [facility] ED Fall Risk Assessment (Adult) History of falling in the last 3 months, iw including since admission No falls in past 3 months (0 pts) Confusion or Disorientation No (0 pts) Intoxicated or Sedated No (0 pts) Impaired Gait Yes (1 pt) Mobility Assist Device Used Yes (1 pt) Altered Elimination No (0 pt) Score/Fall Risk Level 0 - 2 = Low Risk Oriented to surroundings, Maintained a safe environment. 11:46 Abuse screen: Denies threats or abuse. Nutritional screening: No deficits noted. iw Tuberculosis screening: No symptoms or risk factors identified. Assessment: 12:20 Reassessment: Pt arrived in room . iw 12:21 General: Appears in no apparent distress. uncomfortable, Behavior is calm, cooperative. iw Pain: Complains of pain in left side of chest Pain does not radiate. Pain currently is 8 out of 10 on a pain scale. Quality of pain is described as aching, Pain began 1 day ago. Is continuous. 12:21 Neuro: Level of Consciousness is awake, alert, obeys commands, Oriented to person, iw place, time, situation, Appropriate for age. Cardiovascular: Patient's skin is warm and dry. Rhythm is regular. Respiratory: Airway is patent Respiratory effort is even, unlabored, Respiratory pattern is regular, symmetrical. GI: Abdomen is round non-distended, Abd is soft and non tender X 4 quads. : No signs and/or symptoms were reported regarding the genitourinary system. EENT: No signs and/or symptoms were reported regarding the EENT system. Derm: Skin is intact, Skin is pink, warm \\T\\ dry. Musculoskeletal: Circulation, motion, and sensation intact. Range of motion: limited in left arm and left leg pt states "I had a stroke one week ago and I am week on my left side. I am able to stand and walk a little but I have trouble moving my left arm". 13:02 Reassessment: Patient and/or family updated on plan of care and expected duration. Pain iw level reassessed. Patient denies pain at this time. Patient states feeling better. Patient states symptoms have improved. 13:02 Cardiovascular: Rhythm is regular. Respiratory: Respiratory effort is even, unlabored, iw Respiratory pattern is regular, symmetrical. 15:05 Reassessment: No changes from previously documented assessment. Patient and/or family ap3 updated on plan of care and expected duration. Pain level reassessed. Patient is alert, oriented x 3, equal unlabored respirations, skin warm/dry/pink. 16:10 Reassessment: No changes from previously documented assessment. Patient denies pain at rs5 this time. 16:10 Cardiovascular: Rhythm is regular. rs5 Vital Signs: 11:58 BP 139 / 71; Pulse 81; Resp 17; Temp 97.6; Pulse Ox 99% ; Weight 51.26 kg; Height 4 ft. ll1 11 in. ; Pain 8/10; 12:30 BP 135 / 86; Pulse 83; Resp 17; Pulse Ox 99% on R/A; iw 13:35 BP 125 / 75; Pulse 77; Resp 18; Pulse Ox 98% on R/A; iw 15:08 BP 115 / 56; Pulse 65; Resp 18; Temp 98.1; Pulse Ox 98% on R/A; ap3 11:58 Body Mass Index 22.82 (51.26 kg, 149.86 cm) ll1 11:58 Pain Scale: Adult ll1 ED Course: 11:44 Patient arrived in ED. rg4 11:46 Patient has correct armband on for positive identification. Placed in gown. Bed in low iw position. Call light in reach. Side rails up X2. Client placed on continuous cardiac and pulse oximetry monitoring. NIBP monitoring applied. hoop coiling machine operator on. Pulse ox on. NIBP on. 11:46 No provider procedures requiring assistance completed. Patient maintains SpO2 iw saturation greater than 95% on room air. 12:00 Triage completed. ll1 12:00 Arm band placed on. ll1 12:01 EKG done, by ED staff, reviewed by Won Edwards MD. ll1 12:04 Mariusz Pickard MD is Attending Physician. rt 12:27 Missed attempt(s): 22 gauge in right antecubital area. iw 12:38 Missed attempt(s): 24 gauge in right forearm. iw 13:10 Inserted saline lock: in left hand, using aseptic technique. Blood collected. 22g iw difusic catheter. 13:15 Summer Gong, RN is Primary Nurse. iw 13:48 XRAY Chest (1 view) In Process Unspecified. EDMS 13:48 Shoulder Left (2 View) XRAY In Process Unspecified. EDMS 13:48 Elbow Left 3 View XRAY In Process Unspecified. EDMS 13:48 Wrist Left (3 View) XRAY In Process Unspecified. EDMS 14:04 Basic Metabolic Panel Sent. tl4 14:04 CBC with Diff Sent. tl4 14:04 LFT's Sent. tl4 14:04 Magnesium Sent. tl4 14:05 Troponin HS Sent. tl4 15:42 Shailesh Fong MD is Hospitalizing Provider. rt 16:30 Patient admitted, IV remains in place. rs5 22:54 Provided Education on: need for admit. tm6 Administered Medications: 12:20 Drug: Nitroglycerin Sublingual 0.4 mg Sublingual once; every five minute if needed x3 iw Route: Sublingual; 12:25 Drug: Nitroglycerin Sublingual 0.4 mg Sublingual once; every five minute if needed x3 iw Route: Sublingual; 12:30 Drug: Nitroglycerin Sublingual 0.4 mg Sublingual once; every five minute if needed x3 iw Route: Sublingual; 12:35 Follow up: Response: No adverse reaction; Other; 3 doses of 0.4 sublingual nitro adm by iw me, pain relieved after third dose 12:40 Drug: Aspirin PO Chewable Tablet 324 mg PO once; 81 mg tablets x 4 Route: PO; iw 13:20 Follow up: Response: No adverse reaction rs5 15:44 Drug: fentaNYL (PF) IVP 25 mcg IVP once Route: IVP; Site: right hand; rs5 16:10 Follow up: Response: No adverse reaction; Pain is decreased rs5 Medication: 14:13 VIS not applicable for this client. iw Intake: Outcome: 15:43 Decision to Hospitalize by Provider. rt 16:30 Admitted to ER Hold. Please see [facility] for further documentation. rs5 16:30 Condition: stable rs5 16:30 Discharge instructions given to patient, family, Instructed on the need for admit, Demonstrated understanding of instructions, 22:54 Patient left the ED. tm6 Signatures: Dispatcher [employer] EDMS Summer Gong RN RN iw Sera Hanson rg4 Doreen Hankins RN RN ap3 Cristel Lewis RN RN ll1 Mariusz Pickard MD MD rt Rhys Dolan RN RN rs5 Judit Rand RN RN tm6 Jean Pierre Tse RN RN tl4 Corrections: (The following items were deleted from the chart) 13:51 12:40 Reassessment: Pt arrived in room . iw iw 14:15 14:03 Inserted saline lock: in left hand, using aseptic technique. Blood collected. 22g difusic catheter tl4
[2023-10-20] MEDS ORDERED: FENTANYL CITR 100 MCG/2 ML ONE (15:58)
--- NOTE | 2023-10-20 17:01 | P.HP ---
Certification for Inpatient Patient admitted to: Observation With expected LOS: <2 Midnights Patient will require the following post-hospital care: None Practitioner: I am a practitioner with admitting privileges, knowledge of patient current condition, hospital course, and medical plan of care. Services: Services provided to patient in accordance with Admission requirements found in Title 42 Section 412.3 of the Code of Federal Regulations Patient History Date of Service: 10/20/23 Reason for admission: Chest pain History of Present Illness: 78-year-old female with history of hypertension, gte-yuthyxb-tbuftzbbe diabetes, breast cancer, cerebral aneurysm with coiling in 2021 presents to the emergency department chief complaint of chest pain, left shoulder pain. She was admitted at our facility on 10/10/2023 and subsequent discharged on 10/12/2023 with diagnosis of acute CVA, fall. She was unable to have an MRI given her history of aneurysm with coiling. CT head at that time negative for acute findings echocardiogram was performed. Recent hospitalization which showed grade 2 diastolic dysfunction, carotid Doppler showed no evidence of stenosis. Patient reports that she was having some pain in her left arm/shoulder from a fall before coming to the hospital on 10/10/2023 but that it had been getting better happened a couple days ago and has been having worse left shoulder pain without additional injury as well as left-sided chest pain. Range of motion of left shoulder both active and passive significant admitted by pain. Chest x-ray is negative for acute findings, left shoulder x-ray showed calcification adjacent to the greater tuberosity may relate to sequela of calcific tendinitis. X-rays of the left elbow and left wrist are negative for acute findings. Given ongoing discomfort to the chest which was reported to have been relieved with nitroglycerin ED provider resisted interpretation for ACS rule out. Allergies codeine Allergy (Verified 10/02/15 20:58) Hives/Rash Penicillins Allergy (Verified 10/02/15 20:58) Hives/Rash hydrocodone [From Vicodin] Adverse Reaction (Verified 06/01/17 22:24) Unknown naproxen Adverse Reaction (Verified 06/01/17 22:24) Unknown Hydrocodone-Acetaminophen Adverse Reaction (Uncoded 06/01/17 22:24) Hives/Rash Home Medications: Cholecalciferol (Vitamin D3) [Vitamin D] 1.25 mg PO EVERY 7TH DAY 10/02/15 Ascorbic Acid [Vitamin C] 500 mg PO DAILY 10/10/23 Bifidobacterium Infantis [Align] 4 mg PO DAILY 10/10/23 Cyanocobalamin (Vitamin B-12) [Vitamin B-12] 1 cap PO DAILY 10/10/23 Empagliflozin [Jardiance] 25 mg PO DAILY 10/10/23 Aspirin [Aspirin EC 81 MG] 162 mg PO DAILY #60 tab 10/11/23 Atorvastatin Calcium [Lipitor] 80 mg PO BEDTIME #30 tab 10/11/23 - Past Medical/Surgical History Diabetic: Yes -: Type 2 diabetes -: KIDNEY STONES -: Hypertension -: Breast Ca -: Cerebral aneurysm - clipped 2021 -: Cholecystectomy -: HYSTERECTOMY -: COLONOSCOPY -: HERNIA REPAIR -: BACK SURGERY X2 -: LEFT WRIST- PLATE -: aneurysm clip -: right lumpectomy Psychosocial/ Personal History: 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 moist/pink Neck: Supple, 2+ carotid pulse no bruit, No LAD Respiratory: Clear to auscultation bilaterally, Normal air movement Cardiovascular: Regular rate/rhythm, Normal S1 S2 Gastrointestinal: Normal bowel sounds, No tenderness Musculoskeletal: Other (Limited active and passive range of motion to left shoulder due to the pain) Integumentary: No rashes Neurological: Normal speech, Normal tone, Sensation intact (Decreased sensation left lower extremity), Abnormal strength (Acute weakness of left upper extremity, unclear if due to pain or weakness), Abnormal sensation - Studies Laboratory Data (last 24 hrs) 10/20/23 10/20/23 13:57 13:57 WBC 7.10 Hgb 13.8 Hct 39.7 Plt Count 311 Sodium 140 Potassium 4.0 BUN 10 Creatinine 0.64 Glucose 134 H Magnesium 2.0 Total Bilirubin 0.5 AST 15 ALT 22 Alkaline Phosphatase 76 Assessment and Plan - Plan Assessment: Chest pain rule out ACS Left shoulder/left upper extremity pain/weakness Recent suspected ischemic CVA History of cerebral aneurysm with coiling Diabetes mellitus type [id number]-kedldgotu Hypertension History of breast cancer Plan: Chest pain rule out ACS Left shoulder/left upper extremity pain/weakness Pain possibly musculoskeletal Initial EKG without STEMI criteria, initial high sensitive troponin within normal limits Troponin, monitor telemetry, cardiology consult in place Continue aspirin, statin Imaging of left upper extremity negative thus far Will obtain CT chest to further evaluate for injury to chest wall/left shoulder PT consultation in place, social media intern consult as patient was previously supposed to go to rehab per her report Recent suspected ischemic CVA History of cerebral aneurysm with coiling Unable to have MRI given history of aneurysm coiling Continue with aspirin, statin Not on Plavix given history of aneurysm with coiling Diabetes mellitus type [id number]-[id number] ACHS Accu-Chek, sliding insulin Hypertension Continue home medications History of breast cancer Noted DVT PPX:Lovenox Code status:Full Discharge Plan: Home Plan to discharge in: 24 Hours - Advance Directives Does patient have a Living Will: No Does patient have a Durable POA for Healthcare: Yes - Code Status/Comfort Care Code Status Assessed: Yes (Full code) Critical Care: No Time Spent Managing Pts Care (In Minutes): 70
--- NOTE | 2023-10-20 18:48 | RAD REPORT ---
EXAM DESCRIPTION: CT - Thorax Wo Con - 10/20/2023 5:55 pm CLINICAL HISTORY: Chest pain, left shoulder pain, fall, decrease ROM left shoulder COMPARISON: Chest For Pe Angio dated 06/01/2017; CTANGIO CHEST FOR PE dated 08/05/2011; Shoulder Le ft 2 View dated 10/20/2023 TECHNIQUE: Axial thin cut images of the chest were obtained without IV contrast. Multiplanar reforma ts were generated and reviewed. All CT scans are performed using dose optimization technique as appropriate and may include automated exposure control or mA/KV adjustment according to patient size. FINDINGS: No mass or infiltrate in the lung parenchyma apart from minimal bibasilar reticular change s posteriorly, suggestive of atelectasis or scarring. No pleural thickening or pleural effusion. No p neumothorax. No abnormal mediastinal or hilar masses or lymphadenopathy seen. No significant aortic or pulmonary a rtery findings. Assessment is limited in the absence of IV contrast. No chest wall mass or abnormal axillary lymphadenopathy. Evaluation of the solid abdominal structures reveals no suspicious findings. No acute osseous abnormality. Areas of periarticular mineralization along both shoulder joints are no katy, could relate to depositional arthropathy (such as CPPD), or sequelae of calcific tendinitis. IMPRESSION: No acute process within the chest. Incidental findings as above.
--- NOTE | 2023-10-20 19:33 | RAD REPORT ---
EXAM DESCRIPTION: RAD - Hip Left 2 View - 10/20/2023 5:41 pm CLINICAL HISTORY: fall, left hip pain COMPARISON: Hip Left 2 View dated 10/10/2023 TECHNIQUE: Left hip, AP and frogleg views of the left hip. FINDINGS: There is no fracture or dislocation. No acute or destructive bony process seen. Mild left hip joint degenerative changes. IMPRESSION: No acute findings of the left hip. Mild left hip joint degenerative changes.
[2023-10-20] MEDS: INSULIN REGULAR (HUMAN) 100 UNIT/ML SQ SCH (21:43)
[2023-10-20] MEDS ORDERED: TRAMADOL HCL 50 MG TAB ONE (21:47)
[2023-10-20] MEDS: TRAMADOL HCL 50 MG TAB PO PRN (21:51)
[2023-10-20 23:07] VITALS: O2SAT 98
[2023-10-20 23:54] VITALS: BMI 22.8
[2023-10-20] MEDS: ACETAMINOPHEN 325 MG TABLET PO PRN (23:56)
[2023-10-20] MEDS: ATORVASTATIN 40 MG TAB PO SCH (23:56)
[2023-10-21 08:15] LABS: Absolute Eosinophils 0.2 K/uL (0-0.5); Absolute Lymphocytes (CBC) 0.8 K/uL (0.7-4.9); Absolute Monocytes 0.6 K/uL (0.1-1.3); Absolute Neutrophil 5.2 K/uL (1.8-8.0); Basophils % 0.3 % (0-1.3); Eosinophils % 3.2 % (0-4.4); Hematocrit 41.3 % (36.0-45.0); Hemoglobin 14.1 g/dL (12.0-15.0); Lymphocytes % 11.5 % (15.3-44.8); MCH 30.4 pg (27.0-35.0); MCHC 34.1 g/dL (32.0-36.0); MPV 6.8 fL (7.6-11.3); Monocytes % 9.1 % (3.3-12.3); Neutrophils % 75.9 % (41.7-73.7); Nucleated Red Blood Cells % 0.1 % (0-0); Platelets 307 thou/uL (152-406); RBC Red Blood Cell Count 4.64 M/uL (3.86-4.86); Red Cell Distribution Width 12.8 % (12.1-15.2)
[2023-10-21 08:43] LABS: Anion Gap 7.8 mEq/L (5.0-15.0); Potassium 3.8 mEq/L (3.5-5.1); Thyroid Stimulating Hormone 1.71 uIU/mL (0.358-3.740)
[2023-10-21] MEDS: ASPIRIN EC 81 MG TAB PO SCH (08:57)
[2023-10-21] MEDS: ENOXAPARIN 40 MG/0.4 ML SQ SCH (08:57)
[2023-10-21] MEDS ORDERED: ONDANSETRON 4 MG/2 ML VIAL IV PRN (09:07)
[2023-10-21] MEDS: HYDROCODONE/APAP 5/325 MG TAB PO ONE (10:02)
--- NOTE | 2023-10-21 12:57 | P.CNS ---
Date of Consult: 10/21/23 Chief Complaint: Chest pain History of Present Illness: patient with PMH of stroke, recent fall and she did hurt her left shoulder, admitted back in october for shoulder and left arm pain that got better after discharge but now presented again with worsening left shoulder pain associated with chest pain and left arm pain, patient having hard time moving and lifting her arm. Allergies codeine Allergy (Verified 10/02/15 20:58) Hives/Rash Penicillins Allergy (Verified 10/02/15 20:58) Hives/Rash hydrocodone [From Vicodin] Adverse Reaction (Verified 06/01/17 22:24) Unknown naproxen Adverse Reaction (Verified 06/01/17 22:24) Unknown Hydrocodone-Acetaminophen Adverse Reaction (Uncoded 06/01/17 22:24) Hives/Rash Home Medications: Cholecalciferol (Vitamin D3) [Vitamin D] 1.25 mg PO EVERY 7TH DAY 10/02/15 Ascorbic Acid [Vitamin C] 500 mg PO DAILY 10/10/23 Bifidobacterium Infantis [Align] 4 mg PO DAILY 10/10/23 Cyanocobalamin (Vitamin B-12) [Vitamin B-12] 1 cap PO DAILY 10/10/23 Empagliflozin [Jardiance] 25 mg PO DAILY 10/10/23 Aspirin [Aspirin EC 81 MG] 162 mg PO DAILY #60 tab 10/11/23 Atorvastatin Calcium [Lipitor] 80 mg PO BEDTIME #30 tab 10/11/23 - Past Medical/Surgical History Diabetic: Yes -: Type 2 diabetes -: KIDNEY STONES -: Hypertension -: Breast Ca -: Cerebral aneurysm - clipped 2021 -: Cholecystectomy -: HYSTERECTOMY -: COLONOSCOPY -: HERNIA REPAIR -: BACK SURGERY X2 -: LEFT WRIST- PLATE -: aneurysm clip -: right lumpectomy Psychosocial/ Personal History: 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, 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 , Son and Daughter at bedside - Family History Father Medical History: Diabetes Mother Medical History: Cancer Notes: breast - Social History Smoking Status: Never smoker Alcohol use: No CD- Drugs: No Caffeine use: Yes Place of Residence: Home Review of Systems 10-point ROS is otherwise unremarkable Physical Examination Temp Pulse Resp BP Pulse Ox 98.1 F 70 16 110/53 L 95 10/21/23 08:00 10/21/23 08:00 10/21/23 08:00 10/21/23 08:00 10/21/23 08:00 General: Alert, Oriented x3 HEENT: Atraumatic Neck: Supple Respiratory: Clear to auscultation bilaterally Cardiovascular: No edema, Normal S1 S2 Gastrointestinal: Normal bowel sounds Laboratory Data (last 24 hrs) 10/20/23 10/20/23 13:57 13:57 WBC 7.10 Hgb 13.8 Hct 39.7 Plt Count 311 Sodium 140 Potassium 4.0 BUN 10 Creatinine 0.64 Glucose 134 H Magnesium 2.0 Total Bilirubin 0.5 AST 15 ALT 22 Alkaline Phosphatase 76 - Problems (1) Chest pain Onset Date: 10/03/15 Current Visit: No Status: Acute Plan: Non cardiac as patient has no significant EKG changes, Troponin 3 sets are negative and her chest/shoulder/arm pain is reproducible on exam with very limited arm movement. if Echo is normal then no need for further cardiac work up while inpatient and can get outpatient stress test with us in clinic once her MSK pain improves.
--- NOTE | 2023-10-21 13:35 | P.PN ---
Date of Service: 10/21/23 Subjective: Still with left shoulder/chest pain-severe Much worse with range of motion ROS: 10 point ROS as noted above, otherwise negative Physical exam GEN: Alert, oriented, NAD HEENT: Normal conjunctiva, sclera anicteric CV: Regular rate and rhythm, no edema Pulm: Nonlabored respirations on room air ABD: Soft, nontender, nondistended MSK: No joint tenderness Integumentary: No rashes Neuro: Normal speech, normal affect Vitals reviewed Assessment: Chest pain rule out ACS Left shoulder/left upper extremity pain/weakness Recent suspected ischemic CVA History of cerebral aneurysm with coiling Diabetes mellitus type 1kgc-sowkcog-finibkvhh Hypertension History of breast cancer Plan: Chest pain rule out ACS Left shoulder/left upper extremity pain/weakness Pain possibly musculoskeletal Initial EKG without STEMI criteria, troponins x 3 negative Cardiology evaluated patient-agrees pain likely musculoskeletal From cardiac standpoint patient stable for discharge and outpatient follow- up/outpatient stress test Continue aspirin, statin Imaging of left upper extremity negative thus far CT chest without contrast negative for acute findings/findings that would explain left upper extremity pain PT consulted/high school social studies teacher consulted Recent suspected ischemic CVA History of cerebral aneurysm with coiling Unable to have MRI given history of aneurysm coiling Continue with aspirin, statin Not on Plavix given history of aneurysm with coiling Diabetes mellitus type [id number]-[id number]-swijuaiqi ACHS Accu-Chek, sliding insulin Hypertension Continue home medications History of breast cancer Noted DVT PPX:Lovenox Code status:Full Discharge Plan: Home Plan to discharge in: 24 Hours Time Spent Managing Pts Care (In Minutes): 35 <Dennis Brannon - Last Filed: 10/21/23 13:33> Patient seen and examined on rounds this morning and plan discussed with BELT LOOP MAKER Salud. Agree with plan as noted above with the following add itions/corrections: chest pain is reproducible on exam with palpation trop negative, EKG ok very low suspicion for ACS / cardiac etiology; cardiology in agreement patient with significant pain with ROM of left shoulder, pain with palpation along biceps/triceps/shoulder as well pain since her fall, improved, then worsened once working with PT more. Possibility for partial rotator cuff tear / injury unable to get MRI due to aneurysm clip/coil treat with pain control, PT tramdol not doing much, change to hydrocodone -allergy listed is nausea; patient in agreement to try it advised family to get diclofenac cream/gel to apply to area, we don't have on formulary <Shailesh Fong - Last Filed: 10/21/23 17:05>
[2023-10-21] MEDS ORDERED: METHYL SALICYLATE/MENTHOL 3 OZ TUBE TOP PRN (14:27)
[2023-10-21] MEDS: HYDROCODONE/APAP 5/325 MG TAB PO PRN (19:22)
[2023-10-22 07:42] LABS: Absolute Eosinophils 0.3 K/uL (0-0.5); Absolute Lymphocytes (CBC) 0.9 K/uL (0.7-4.9); Absolute Monocytes 0.7 K/uL (0.1-1.3); Absolute Neutrophil 3.9 K/uL (1.8-8.0); Basophils % 0.5 % (0-1.3); Eosinophils % 5.1 % (0-4.4); Hematocrit 39.7 % (36.0-45.0); Hemoglobin 13.5 g/dL (12.0-15.0); Lymphocytes % 14.6 % (15.3-44.8); MCH 30.4 pg (27.0-35.0); MCHC 34.1 g/dL (32.0-36.0); MCV 89.2 fL (80-100); MPV 6.6 fL (7.6-11.3); Monocytes % 12.4 % (3.3-12.3); Neutrophils % 67.4 % (41.7-73.7); Nucleated Red Blood Cells % 0.1 % (0-0); Platelets 307 thou/uL (152-406); RBC Red Blood Cell Count 4.45 M/uL (3.86-4.86); Red Cell Distribution Width 12.5 % (12.1-15.2)
[2023-10-22 07:56] LABS: Anion Gap 6.9 mEq/L (5.0-15.0); Potassium 3.9 mEq/L (3.5-5.1)
[2023-10-22 11:02] VITALS: BP 139/63; TEMP 97.3
--- NOTE | 2023-10-22 12:53 | P.DS ---
Admission Date: 10/20/23 Discharge Date: 10/22/23 Disposition: DC HOME/HOME HEALTH CARE Discharge Condition: GOOD Reason for Admission: Chest pain Consultations: Cardiology- Dr. Abrams Brief History of Present Illness: 78-year-old female with history of hypertension, xeo-yqmzjgs-qotxmebxx diabetes, breast cancer, cerebral aneurysm with coiling in 2021 presents to the emergency department chief complaint of chest pain, left shoulder pain. She was admitted at our facility on 10/10/2023 and subsequent discharged on 10/12/2023 with diagnosis of acute CVA, fall. She was unable to have an MRI given her history of aneurysm with coiling. CT head at that time negative for acute findings echocardiogram was performed. Recent hospitalization which showed grade 2 diastolic dysfunction, carotid Doppler showed no evidence of stenosis. Patient reports that she was having some pain in her left arm/shoulder from a fall before coming to the hospital on 10/10/2023 but that it had been getting better happened a couple days ago and has been having worse left shoulder pain without additional injury as well as left-sided chest pain. Range of motion of left shoulder both active and passive significant admitted by pain. Chest x-ray is negative for acute findings, left shoulder x-ray showed calcification adjacent to the greater tuberosity may relate to sequela of calcific tendinitis. X-rays of the left elbow and left wrist are negative for acute findings. Given ongoing discomfort to the chest which was reported to have been relieved with nitroglycerin ED provider resisted interpretation for ACS rule out. Hospital Course: Patient was admitted to the hospital for chest pain, left shoulder pain. She had a fall a couple weeks ago onto her left side and initially her pain was g etting better but the past few days prior to admission was getting significantly worse. Her troponins were trended and remained negative, she was seen by cardiology who is in agreement her pain in her left chest wall is likely musculoskeletal in nature. It is recommended she follow-up outpatient with top bottom attaching machine operator for stress test. In regards to her left shoulder pain, she was having significantly decreased range of motion due to pain, she was given Castleton in the hospital and her family picked up some Voltaren from the pharmacy. With PT/OT in addition to the Castleton and Voltaren patient has significantly improved level of pain and range of motion in the left shoulder. During hospitalization she had x-rays of her left shoulder, left elbow, left wrist and a CT of her chest without contrast to rule out fractures or other causes of her left shoulder/chest pain all of which were negative for acute findings. Additionally patients primary care doctor is arranging for her to receive some additional physical therapy. Patient structured to call her primary care doctor today to further discuss options for physical therapy in regards to her left upper shoulder. Continue your home medications as prescribed Prescription will be sent for Castleton as needed for pain Use Voltaren as directed up to 4 times daily as needed for pain in the left shoulder Follow-up with your primary care doctor 1 to 2 weeks Please follow-up with Dr. Abrams cardiology in the next 2-3 weeks Assessment: Chest pain rule out ACS Left shoulder/left upper extremity pain/weakness Recent suspected ischemic CVA History of cerebral aneurysm with coiling Diabetes mellitus type [id number]-zoohmsxmg Hypertension History of breast cancer Vital Signs/Physical Exam: Temp Pulse Resp BP Pulse Ox 97.3 F 76 16 139/63 98 10/22/23 08:00 10/22/23 08:00 10/22/23 08:00 10/22/23 08:00 10/22/23 08:00 General: Alert, In no apparent distress, Oriented x3 HEENT: Atraumatic, PERRLA Neck: Supple, JVD not distended Respiratory: Clear to auscultation bilaterally, Normal air movement Cardiovascular: Regular rate/rhythm, Normal S1 S2 Gastrointestinal: Normal bowel sounds, No tenderness Musculoskeletal: No tenderness, Tenderness, Other (Limited ROM left shoulder) Integumentary: No rashes Neurological: Normal speech, Normal tone, Normal affect Laboratory Data at Discharge: WBC 5.80 thou/uL (4.3-10.9) 10/22/23 07:24 Hgb 13.5 g/dL (12.0-15.0) 10/22/23 07:24 Hct 39.7 % (36.0-45.0) 10/22/23 07:24 Plt Count 307 thou/uL (152-406) 10/22/23 07:24 Sodium 138 mEq/L (136-145) 10/22/23 07:24 Potassium 3.9 mEq/L (3.5-5.1) 10/22/23 07:24 BUN 14 mg/dL (7-18) 10/22/23 07:24 Creatinine 0.57 mg/dL (0.55-1.02) 10/22/23 07:24 Glucose 180 mg/dL (74-106) H 10/22/23 07:24 Magnesium 2.0 mg/dL (1.6-2.4) 10/20/23 13:57 Total Bilirubin 0.5 mg/dL (0.2-1.0) 10/20/23 13:57 AST 15 U/L (15-37) 10/20/23 13:57 ALT 22 U/L (13-56) 10/20/23 13:57 Alkaline Phosphatase 76 U/L (45-117) 10/20/23 13:57 Home Medications: Cholecalciferol (Vitamin D3) [Vitamin D] 1.25 mg PO EVERY 7TH DAY 10/02/15 Ascorbic Acid [Vitamin C] 500 mg PO DAILY 10/10/23 Bifidobacterium Infantis [Align] 4 mg PO DAILY 10/10/23 Cyanocobalamin (Vitamin B-12) [Vitamin B-12] 1 cap PO DAILY 10/10/23 Empagliflozin [Jardiance] 25 mg PO DAILY 10/10/23 Aspirin [Aspirin EC 81 MG] 162 mg PO DAILY #60 tab 10/11/23 Atorvastatin Calcium [Lipitor] 80 mg PO BEDTIME #30 tab 10/11/23 Hydrocodone 5/APAP 325 [Castleton 5/325] 1 tab PO Q8H PRN #15 tab 10/22/23 New Medications: Hydrocodone 5/APAP 325 [Castleton 5/325] 1 tab PO Q8H PRN #15 tab PRN Reason: Pain Scale 8-10 (Severe) Physician Discharge Instructions: Patient was admitted to the hospital for chest pain, left shoulder pain. She had a fall a couple weeks ago onto her left side and initially her pain was getting better but the past few days prior to admission was getting significantly worse. Her troponins were trended and remained negative, she was seen by cardiology who is in agreement her pain in her left chest wall is likely musculoskeletal in nature. It is recommended she follow-up outpatient with top bottom attaching machine operator for stress test. In regards to her left shoulder pain, she was having significantly decreased range of motion due to pain, she was given Castleton in the hospital and her family picked up some Voltaren from the pharmacy. With PT/OT in addition to the Castleton and Voltaren patient has significantly improved level of pain and range of motion in the left shoulder. During hospitalization she had x-rays of her left shoulder, left elbow, left wrist and a CT of her chest without contrast to rule out fractures or other causes of her left shoulder/chest pain all of which were negative for acute findings. Additionally patients primary care doctor is arranging for her to receive some additional physical therapy. Patient structured to call her primary care doctor today to further discuss options for physical therapy in regards to her left upper shoulder. Continue your home medications as prescribed Prescription will be sent for Castleton as needed for pain Use Voltaren as directed up to 4 times daily as needed for pain in the left shoulder Follow-up with your primary care doctor 1 to 2 weeks Please follow-up with Dr. Abrams cardiology in the next 2-3 weeks Home Health resumption: [facility] P:[phone] F:[phone] Diet: AHA Activity: Fall precautions Followup: Simón Abrams MD [ACTIVE - CAN ADMIT] - 1-2 Weeks OOTSKY [Primary Care Provider] - 2-3 Days Time spent managing pt's care (in minutes): 30
--- NOTE | 2023-10-22 17:30 | EKG ---
Test Date: 2023-10-20 Test Time: 11:43:25 Door Builder: ALBERTO MEASUREMENT RESULTS: Intervals: Rate: 81 NJ: 150 QRSD: 68 QT: 376 QTc: 436 [place]: P: 67 NJ: 150 QRS: -24 T: 58 INTERPRETIVE STATEMENTS: Normal sinus rhythm Cannot rule out Anterior infarct, age undetermined Abnormal ECG Compared to ECG 10/10/2023 10:23:48 Left-axis deviation no longer present Myocardial infarct finding still present Electronically Signed On 10-22-23 17:23:35 CDT by Phillip Ramirez
== END 2023-10-22 10:59 | disposition home health service (06) ==
LOC: ER 11:43 → ERHOLD 16:39 → 4TH 22:44
PROVIDERS: ADMIT Hospitalist; ATTEND Hospitalist
DX: R07.9 Chest pain, unspecified (principal); M25.512 Pain in left shoulder; I10 Essential (primary) hypertension; E11.8 Type 2 diabetes mellitus with unspecified complications; R53.1 Weakness; Z86.73 Personal history of transient ischemic attack (TIA), and cerebral infarction without residual deficits; Z88.5 Allergy status to narcotic agent; Z88.0 Allergy status to penicillin; Z88.8 Allergy status to other drugs, medicaments and biological substances; Z79.4 Long term (current) use of insulin; Z85.3 Personal history of malignant neoplasm of breast; Z91.81 History of falling
CPT/HCPCS: 93005; 85025 ×3; 80048 ×3; 36415 ×2; 83735; 82947 ×5; 80076; 84443; 84484 ×3; 84439; 71250; 71045; 73502; 73080; 73030; 73110; 97110 ×2; 97116 ×2; 97161; 97165; 97530 ×2; 96374; 99285; J1650 ×2; J3010; G0378 ×5

== ENCOUNTER 2023-10-29 15:00 | Inpatient (IN) | payer OTHER ==
[2023-11-01] MEDS ORDERED: HYDROCODONE/APAP 5/325 MG TAB PO PRN (09:43)
[2023-11-01 09:46] VITALS: BMI 22.5
[2023-11-01] MEDS: CYANOCOBALAMIN 1000MCG/ML INJ IM ONE (09:49)
[2023-11-01] MEDS: METFORMIN HCL 500 MG TAB PO SCH (10:00)
[2023-11-01] MEDS ORDERED: D50W 25 GM/50 ML SYRINGE IV PRN (11:14)
[2023-11-01] MEDS ORDERED: GLUCAGON 1 MG/VIAL IM PRN (11:14)
[2023-11-01] MEDS ORDERED: D10W 125 ML IV PRN (11:21)
[2023-11-01] MEDS: INSULIN REGULAR (HUMAN) 100 UNIT/ML SQ SCH (12:11)
[2023-11-01] MEDS ORDERED: DOCUSATE NA/SENNA CONC 1 TAB PO PRN (13:14)
[2023-11-01] MEDS ORDERED: MELATONIN 3 MG TABLET PO PRN (13:17)
[2023-11-01] MEDS ORDERED: METFORMIN HCL 500 MG TAB PO SCH (17:00)
[2023-11-01] MEDS: APIXABAN 2.5 MG TABLET PO SCH (20:01)
[2023-11-01] MEDS: GABAPENTIN 100 MG CAP PO SCH (20:01)
--- NOTE | 2023-11-01 23:45 | HP ---
Date of Admission: 11/01/2023 Time Of Service: 1:30 p.m. Chief Complaint: "Stroke, my left side is weak." History Of Present Illness: Ms. Busch is a 78-year-old patient with hypertension, diabetes mellitus, breast cancer, cerebral aneurysm, who developed sudden-onset left-sided weakness on 10/12/2023 while she was getting dressed for a bahai. She developed weakness and was lowered herself to the floor, but had to wait until her daughter arrived for help. She had slurred speech when she was brought by the EMS to [facility]. She was evaluated by a CT scan, as a brain MRI could not be done. I maging was negative for any acute findings. She was discharged and told to follow up with her primar care physician or to return to the emergency department if symptoms worsen. Over the next few days , symptoms did worsen and she came back on 10/20/2023 with increased left-sided weakness, chest pain, and decreased range of motion left upper extremity. Chest x-ray was negative and left shoulder x-ra y showed calcification and tendinitis. Arm and wrist imaging were negative. She was given aspirin a nd statins. She also had pain in the left face and left neck. She received sliding scale for diabet es mellitus. Hypertension managed. She was discharged home following that. However, at home, she r equired moderate assistance for bed mobilization and transfers and contact guard assistance for ambul ation with a rolling walker. Blood sugar is also currently very elevated. She was evaluated by her physician and determined that proper management required more aggressive nursing and education and th at she would benefit from aggressive therapy to attempt to begin to ambulate and return to her prior level of functioning. Furthermore, she was significantly dehydrated and had orthostatic changes. Pa in level was elevated to 8/10. She was therefore determined to be appropriate candidate for inpatien t rehabilitation, as her left lower extremity was significantly weak and not able to bear much weight in the right lower extremity, also was noted to be weak along with again left-sided pain and numbnes s. Furthermore, she had cognitive decline with worsening memory, difficulty with word retrieval, and could benefit from speech therapy. As a result of requiring physical, occupational, and speech ther apy along with medical management, she was determined to be a good candidate for inpatient rehabilita tion. Furthermore, the patient did have episodes of tearful conversations, likely requiring evaluati on by Psychiatry to help reduce the chance of further cognitive decline. Past Medical History: Diabetes mellitus, kidney stones, hypertension, breast cancer, cerebral aneury sm clipped in 2021. Past Surgical History: Cholecystectomy, hysterectomy, colonoscopy, hernia repair, back surgery twice , and left wrist plate. Allergies: CODEINE, PENICILLIN, HYDROCODONE, NAPROSYN. Medications: Tylenol 500 mg every 4 hours as needed, Eliquis 2.5 mg twice daily, vitamin C 500 mg da marlene, aspirin 162 mg daily, vitamin B12 1000 mcg daily, vitamin D 1000 units daily, gabapentin 100 mg twice daily. She has an insulin sliding scale, Glucophage 1000 mg with breakfast, Protonix 40 mg faith ly, Senokot-S 2 at bedtime, Ultram 50 mg every 6 hours as needed. Family History: Noncontributory. Social History: No alcohol, tobacco, or IV drugs. The patient lives in a single-family home. Review of Systems: She does note pain in her left face, arm, and leg and there is some weakness and numbness as well on the left upper and lower extremity and mildly so on the face and some difficulty with right lower ext remity weakness is noted as well. Otherwise, negative on a 10-point systems review. Current Level Of Functioning: Eating is setup assistance. Oral hygiene, contact guard. Toileting, supervision. Showering, moderate assistance. Upper body dressing, contact guard. Lower body dressi ng, moderate assistance. Donning and doffing footwear, moderate assistance. Rolling [id number], contact guard assistance. Changing from sitting to lying, moderate assistance. From lying to sittin g, also moderate assistance. From sit to stand and transfer to bed to chair to toilet, moderate assi stance. Ambulation, she ambulated 10 feet with a Rollator with contact guard assistance. Laboratory Studies: Most recent white blood cell count 5.8, this is on 10/22/2023; hemoglobin 13.5; platelets 307. INR 0.96. Sodium 138, potassium 3.9, chloride 106, carbon dioxide 29, BUN 14, creati nine 0.57, and over 10 days glucose ranged from 105 to 304, calcium 9.0. Physical Examination: Vital Signs: Blood pressure ranged 139 to 143 over 63 to 65, pulse 76 to 79, respiratory rate 16 to 18, temperature 97.5, oxygen saturation 97%. General: Ms. Busch is sitting in a chair beside the bed. She appears in no significant distress. HEENT: She is normocephalic, atraumatic. Sclerae anicteric. Oropharynx is moist. Neck: Supple. Chest: Clear. Heart: Regular. Extremities: No significant edema, cyanosis, or clubbing. Neurological: Some decreased to light touch and temperature in the left compared to right face. Dec reased to light touch and temperature of the left arm compared to the right arm and some pain on move ment of the left arm, to lesser extent in the left lower extremity. Mild weakness on the left compar ed to right side, around 4/5 proximally and distally, and coordination appears intact in the right up per extremity, but she has some decrease of full extension in the left arm due to pain, but did not h ave destin past-pointing. She will be ambulated with the gait belt and rolling walker. Rehabilitation And Medical Assessment And Plan: Ms. Busch is a 78-year-old patient in the rehabilita tion unit with impairment category is 01 stroke. Her impairment group code is 01.1, left body involv ement, right brain. Etiologic diagnosis is cerebrovascular accident and her comorbidities are debili ty, decrease in mobility, diabetes mellitus type 2, hypertension, left-sided weakness, pain, decrease d physical functioning. Plan: 1.She will have physical, occupational, and speech therapy for 3.5 hours, 5 of 7 days. 2.Eliquis 2.5 mg twice daily for DVT prophylaxis. 3.Aspirin 162 mg daily for stroke risk reduction. 4.Vitamin B12 injections 1000 mcg weekly. 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 6.Tylenol 500 mg every 4 hours as needed as well. 7.She has an insulin sliding scale. 8.Metformin 1000 mg at breakfast. 9.Protonix 40 mg daily. 10.Melatonin 3 mg at bedtime. 11.Senna-S 2 at bedtime. 12.Tramadol 50 mg every 6 hours as needed. 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 Currently, it does limit her from extending the left upper extremity, making it difficult for supporting weights. She uses a walker. Again adjustments including muscle relaxants and neuromodulator and pain patch will be added. In addition, she has arthritic changes in her left shoulder. We will have a pain patch applied to that area as well. Rehab Specific Plan: Ms. Busch will have physical, occupational, and speech therapy for 3.5 hours, 5 of 7 days to improve her ability to transfer from bed to chair to toilet to shower, to ambulate 250 feet, to propel a wheelchair 250 feet, to go up and down 10 steps and perform cognitive functioning i ndependently. If need be assistance from the hospitalist service and the cardiology service may be c onsulted. Ms. Bsuch has a good understanding of the process of admission to the inpatient rehabilitation facili and how she will benefit from physical, occupational, and speech therapy. Given her complex medic al condition and risk of further complications, rehabilitation cannot be safely or effectively perfor med at a lower level of facility such as custodial. Barriers To Discharge: Currently, the central pain syndrome may persist likely longer than the time for her to be in rehabilitation and medication adjustment may have to be made before she is discharge d home. Length Of Stay: About 10 days. Disposition: Home with continuing therapy via Home Health. Prognosis: Good. Rehab Specific Goals: 1.Become independent with upper body dressing, toileting, showering, donning and doffing of footwear . 2.Independently ambulate 250 feet with a rolling walker. 3.Independently propel a wheelchair 250 feet. 4.Independently go up and down 10 steps with bilateral handrails. 5.Independently perform all cognitive functioning. The goals were reviewed with Ms. Busch and she is in agreement. By signing this document, I acknowledge I personally performed a full physical examination on Ms. Trever odonnell no later than 24 hours after admission to the inpatient rehabilitation facility and determined camilo t she is able to tolerate the above course of treatment at an intensive level for a reasonable period of time. A detailed individualized plan of care for her will be completed by hospital day 4 based o n the preadmission screen, history and physical, and therapy evaluations. BOONE/NIKO Voice ID: [id number]
[2023-11-02 04:26] LABS: Absolute Basophils 0.1 K/uL (0-0.5); Absolute Eosinophils 0.4 K/uL (0-0.5); Absolute Lymphocytes (CBC) 1.2 K/uL (0.7-4.9); Absolute Monocytes 0.6 K/uL (0.1-1.3); Absolute Neutrophil 2.6 K/uL (1.8-8.0); Basophils % 1.1 % (0-1.3); Eosinophils % 9.1 % (0-4.4); Hematocrit 38.2 % (36.0-45.0); Hemoglobin 12.9 g/dL (12.0-15.0); Lymphocytes % 24.3 % (15.3-44.8); MCH 30.2 pg (27.0-35.0); MCHC 33.8 g/dL (32.0-36.0); MCV 89.4 fL (80-100); MPV 6.7 fL (7.6-11.3); Monocytes % 12.3 % (3.3-12.3); Neutrophils % 53.2 % (41.7-73.7); Platelets 332 thou/uL (152-406); RBC Red Blood Cell Count 4.27 M/uL (3.86-4.86); Red Cell Distribution Width 12.3 % (12.1-15.2)
[2023-11-02 04:47] LABS: Anion Gap 6.9 mEq/L (5.0-15.0); Magnesium 1.9 mg/dL (1.6-2.4); Potassium 3.9 mEq/L (3.5-5.1); Prealbumin 17.2 mg/dL (20-40)
[2023-11-02 05:43] LABS: Renal Epithelial <5 /HPF (None Seen); Specific Gravity 1.008 (1.005-1.030); Sqamous Epithelial <5 /HPF (None Seen); Urine Bacteria None Seen /HPF (<20); Urine Bilirubin NEGATIVE (Negative); Urine Blood Negative (Negative); Urine Clarity Clear (Clear); Urine Color Colorless (Yellow); Urine Culture Reflex Order NOT NEEDED; Urine Glucose NEGATIVE (Negative); Urine Ketones NEGATIVE (Negative); Urine Micro Reflex YN NO BILL MICROSCOPIC; Urine Mucus Slight /HPF (None Seen); Urine Nitrite NEGATIVE (Negative); Urine Protein NEGATIVE (Negative); Urine RBC <5 /HPF (None Seen); Urine Urobilinogen Normal (Normal); Urine WBC <5 /HPF (<5); Urine pH 6.5 (5.0-7.0)
[2023-11-02] MEDS: PANTOPRAZOLE 40MG TABLET PO SCH (06:43)
[2023-11-02] MEDS: JARDIANCE 25 MG PO SCH (07:33)
[2023-11-02] MEDS: VITAMIN D 1000 UNIT TAB PO SCH (07:34)
[2023-11-02] MEDS: METFORMIN HCL 500 MG TAB PO SCH (07:34)
[2023-11-02] MEDS: ASPIRIN EC 81 MG TAB PO SCH (07:34)
[2023-11-02] MEDS: ASCORBIC ACID 500 MG TABLET PO SCH (07:34)
[2023-11-02] MEDS: GLUCERNA SHAKE 237 ML CAN PO SCH (20:00)
[2023-11-02] MEDS ORDERED: ENSURE ENLIVE 237 ML CAN PO SCH (20:00)
[2023-11-03] MEDS: TRAMADOL HCL 50 MG TAB PO PRN (01:38)
--- NOTE | 2023-11-03 02:14 | PN ---
Date of Progress Note: 11/02/2023 Time Of Service: 1 p.m. Subjective: Ms. Busch is doing well. Has no new complaints. Reports no significant pain. She is w orking with physical therapist in the gym area. Review of Systems: No fevers or chills. No significant nausea, vomiting, or myalgias, arthralgias, any significant rash , headache, weight change. She does of course have involvement of left body from right brain from he r stroke, but she is recovering very well. Physical Examination: Vital Signs: Blood pressure 134/64, pulse of 71, respiratory rate 17, temperature 97.2, oxygen satur ation 95%. General: Ms. Busch again is doing well. Her weakness is improving. She is mobilizing well and has no new deficits from the left-sided weakness and the right brain involved the stroke. Laboratory Studies: Complete blood count with differential is essentially normal. Chemistries; sodi um 140, potassium 3.9, chloride 108, creatinine 0.56, glucose ranged from 129 to 183, calcium 9.2, ma gnesium 1.9, prealbumin 17.2, albumin 3.0, and urinalysis shows 75 esterase, but is otherwise normal. X-ray/imaging: No new x-rays or imaging. Medications: Tylenol 500 mg every 4 hours as needed, Eliquis 2.5 mg twice daily, vitamin C 500 mg da marlene, aspirin 162 mg daily, vitamin D 1000 units daily, gabapentin 100 mg twice daily, Glucerna shake 237 mL twice daily, melatonin 3 mg at bedtime, metformin 1000 mg daily, Protonix 40 mg daily, Senokot -S 2 at bedtime, tramadol 50 mg every 6 hours as needed. Progress Made With Physical, Occupational, And Speech Therapy: Today with physical therapy, she ambu lated 500 feet twice, 250 feet twice, another 600 feet once with standby assistance, ascended and sidra cended 20 steps with bilateral handrails with standby assistance, mobilized a wheelchair 250 feet wit h modified independence. With occupational therapy, supervision for toilet hygiene, bathing, and she was able to bend and seeing toes left leg and did very well. Supervision was required for upper bod y dressing, lower body dressing, and donning and doffing of footwear. Speech therapy provided educat ion and she scored 14 on the BIMS and 24 on the SLUMS indicating mild cognitive impairment and she do es have a sixth grade education. She is likely at baseline. Ms. Busch is making excellent progress with physical, occupational, and speech therapy. Assessment: Ms. Busch is a 78-year-old patient with stroke affecting left body, right brain, from wh ich she is recovering in an excellent fashion. She has diabetes mellitus, hypertension, decreased ph ysical functioning, and decreased mobility, but she is doing very well. Plan: 1.Continue with physical, occupational, and speech therapy for 3.5 hours, 5 of 7 days. 2.She has multiple comorbid condition medications which are continuing including tramadol, Senokot, melatonin, Protonix, metformin, gabapentin, aspirin for stroke risk reduction, Eliquis 2.5 mg twice d aily for DVT risk reduction. Comorbidities That Are Impacting Her Rehabilitation: At this point, she does have improving central pain from the stroke and has more extension of the left upper extremity. Medications have been adjus katy and she is actually doing very well with that. BOONE/MODL Voice ID: [id number] Report ID: [id number]
[2023-11-03] MEDS: LIDOCAINE 4% PATCH TOP SCH (07:54)
--- NOTE | 2023-11-03 13:25 | RAD REPORT ---
EXAM DESCRIPTION: RAD - Wrist Left 2 View - 11/03/2023 1:13 pm CLINICAL HISTORY: Wrist pain FINDINGS: Plate and screws affix old radial fracture. Osteoporosis. No acute fracture or dislocation Moderate narrowing of the radiocarpal joint. Calcification triangular fibrocartilage.
[2023-11-03] MEDS: ACETAMINOPHEN 500 MG TAB PO PRN (23:06)
[2023-11-04 04:21] LABS: Absolute Eosinophils 0.4 K/uL (0-0.5); Absolute Lymphocytes (CBC) 0.9 K/uL (0.7-4.9); Absolute Monocytes 0.8 K/uL (0.1-1.3); Absolute Neutrophil 5.8 K/uL (1.8-8.0); Basophils % 0.5 % (0-1.3); Eosinophils % 4.6 % (0-4.4); Hematocrit 40.9 % (36.0-45.0); Lymphocytes % 11.6 % (15.3-44.8); MCH 30.3 pg (27.0-35.0); MCHC 34.2 g/dL (32.0-36.0); MCV 88.6 fL (80-100); MPV 6.4 fL (7.6-11.3); Monocytes % 10.3 % (3.3-12.3); Nucleated Red Blood Cells % 0.2 % (0-0); Platelets 328 thou/uL (152-406); RBC Red Blood Cell Count 4.61 M/uL (3.86-4.86); Red Cell Distribution Width 12.6 % (12.1-15.2)
[2023-11-04 04:42] LABS: Albumin 3.3 g/dL (3.4-5.0); Anion Gap 7.9 mEq/L (5.0-15.0); Magnesium 1.9 mg/dL (1.6-2.4); Potassium 3.9 mEq/L (3.5-5.1); Prealbumin 20.1 mg/dL (20-40)
[2023-11-04] MEDS: INSULIN REGULAR (HUMAN) 100 UNIT/ML SQ SCH (07:30)
[2023-11-04] MEDS: ONDANSETRON 4 MG (ODT) TAB PO PRN (12:45)
--- NOTE | 2023-11-04 15:37 | RAD REPORT ---
EXAM DESCRIPTION: RAD Neck Soft Tissue CLINICAL HISTORY: poss stuck med on the throat COMPARISON: Neck Angio dated 10/10/2023 TECHNIQUE: Two views of the neck soft tissues. FINDINGS: Upper airway is patent. Epiglottis is unremarkable in appearance. Patchy calcification in the region of the larynx likely related to the thyroid and cricoid cartilages, with no discrete abnor mality. Prevertebral soft tissues are unremarkable. Anterior cervical fusion hardware in place. IMPRESSION: No acute or suspicious abnormalities of the neck soft tissues.
--- NOTE | 2023-11-04 23:06 | PN ---
Date of Progress Note: 11/04/2023 Time Of Service: 1 p.m. Subjective: Ms. Busch is ambulating around the unit, doing very well. She did report some difficult y swallowing tablet today, seems as though it was hung up in her neck. Thin liquids and pudding cons istencies go down without difficulty. A neck x-ray was done. The study showed the upper airway is i ntact. Epiglottis unremarkable. 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 No discrete abnormalities; however, paravertebra l soft tissue unremarkable. Anterior cervical fusion hardware in place. There is no acute or suspic ious abnormalities in the neck soft tissues. Objective: Again, some issues with pill seeming to be hung up. Otherwise, she has no new complaints . Review of Systems: No fevers or chills. No nausea, vomiting. No myalgias, arthralgias, rash, psychiatric issues. Physical Examination: Vital Signs: Blood pressure 128/62, pulse 82, respiratory rate 16, temperature 97.1, oxygen saturati on 97%. Weight 111 pounds, height 4 feet 11 inches, BMI 22.5. General: Ms. Busch again is ambulating around the unit. She appears to be in no acute distress. HEENT: She is normocephalic, atraumatic. Sclerae anicteric. Oropharynx pink and moist. Neck: Supple. Chest: Clear. Heart: Regular. Extremities: No significant clubbing, cyanosis, or edema. In terms of her examination, she does hav e mild symptoms of weakness on the left body. She has a right brain stroke, but that is improving ve ry well and she is doing excellent. Medications: Her medications have been reviewed and are unchanged. She does have lidocaine patch ap plied to the shoulders. Laboratory Studies: Complete blood count with differential essentially unremarkable. Chemistries sodium, potassium chloride, bicarb, creatinine, BUN, all normal. Glucose in range of 128 to 163, calcium 9.8, magnesium 1.9, prealbumin 20.1, albumin 3.3. As noted, she did have a wrist x-ray done on the . The study showed no acute findings. There is an old radial fracture, it is on the left wrist. Progress Made With Physical And Occupational Therapy: Today with occupational therapy, independent w ith toilet hygiene, bathing, upper and lower body dressing, footwear, grooming as well. Independent with ADLs and did activities without loss of balance. With physical therapy, ambulated 500 feet, 250 feet, another 750 feet independently, and another 500 feet independently. She was able to go up and down 15 steps independently and did that twice. Self propelled a wheelchair 250 feet independently. Ms. Busch is doing excellent, is ready for discharge in the morning, will continue therapy, best done outpatient. Assessment: Ms. Busch is a 78-year-old patient in rehabilitation with stroke affecting the left body , right brain, and she is recovering excellently. She has diabetes, hypertension, decreased physical functioning, decreased mobility. Her pain is managed with lidocaine patch and gabapentin along with Tylenol. She has aspirin for stroke risk reduction, Glucerna for malnutrition, gabapentin for neuro pathic pain related to long history of diabetes. Comorbidities That Are Continuing To Impact Rehabilitation: Comorbid conditions are stable and do no t negatively impact her rehabilitation. She does report again some issues of swallowing, but the x-r ay is unremarkable. She may follow up outpatient with her GI doctor. BOONE/NIKO Voice ID: [id number] Report ID: [id number]
[2023-11-05 09:40] VITALS: BP 136/64; TEMP 97.6
== END 2023-11-05 08:20 | disposition home or self-care (01) | DRG 57 ==
LOC: 5TH 11-01 08:50
PROVIDERS: ADMIT Psychiatry & Neurology Neurology with Special Qualifications in Child Neurology; ATTEND Psychiatry & Neurology Neurology with Special Qualifications in Child Neurology
DX: I69.354 Hemiplegia and hemiparesis following cerebral infarction affecting left non-dominant side (principal); E46 Unspecified protein-calorie malnutrition; I69.328 Other speech and language deficits following cerebral infarction; I69.319 Unspecified symptoms and signs involving cognitive functions following cerebral infarction; I69.311 Memory deficit following cerebral infarction; E11.9 Type 2 diabetes mellitus without complications; I10 Essential (primary) hypertension; C50.919 Malignant neoplasm of unspecified site of unspecified female breast; R53.81 Other malaise; Z68.22 Body mass index [BMI] 22.0-22.9, adult
CPT/HCPCS: 36415; 70360; 80048; 81001; 82040; 82947; 83735; 84134; 85025; 87077; 87086; 87088; 87186; 92523; 97110; 97116; 97161; 97165; 97530; 97542; J1815; J2001; Q0162